=== PATIENT | female | born 1990 | race Two or more races ===

== ENCOUNTER 2023-03-24 17:49 | Emergency (ER) | payer BC, SELFPAY ==
[2023-03-24 18:18] VITALS: BP 108/75; PULSE 98; RESP 18; TEMP 37.7; O2SAT 100; BMI 27.1
--- NOTE | 2023-03-24 18:18 | ED.GENADULT ---
HPI - General Adult General Chief complaint: Fever Stated complaint: Fever Time Seen by Provider: 03/24/23 19:40 Source: patient Mode of arrival: ambulatory Limitations: no limitations History of Present Illness HPI narrative: Patient is a 32 year old assigned female at with no reported medical history presenting to the emergency department today with a fever and cough. Patient states that over the last 2 days she has felt generally unwell with a fever and a cough. Patient denies any dizziness, lightheadedness, abdominal pain, nausea, vomiting, chills, blurry vision, double vision, loss of vision, chest pain, difficulty breathing, shortness of breath, back pain, night sweats, pain with urination, increased urinary frequency, increased urinary urgency, blood in her urine or stool, syncope or a near syncopal episode, recent trauma or falls, bowel incontinence, bladder incontinence, bowel retention, bladder retention, or any other complaints at this time. Onset (ago): day(s) (2) Severity: mild Severity scale (1-10): 3 Relieving factors: none Exacerbating factors: none Associated symptoms: cough and fever/chills Treatments prior to arrival: none Related Data Previous Rx's Medication Instructions Recorded oseltamivir 75 mg capsule (Tamiflu) 75 mg PO DAILY 5 days #5 caps 03/24/23 Allergies Allergy/AdvReac Type Severity Reaction Status Date / Time shellfish derived Allergy Anaphylaxis Verified 03/24/23 18:18 Review of Systems Constitutional: Constitutional: Reports no additional constitutional complaints, Denies chills, Reports fever(s) and Denies night sweats Eyes: Eyes: Reports no additional eye complaints, Denies blurry vision, Denies change in vision, Denies diplopia, Denies eye discharge, Denies loss of vision and Denies eye pain ENT: Denies dizziness Cardiovascular: Cardiovascular: Reports no additional cardiovascular complaints, Denies chest pain, Denies lightheadedness, Denies Loss of Consciousness and Denies dyspnea Respiratory: Respiratory: Reports no additional respiratory complaints, Reports cough and Denies dyspnea Gastrointestinal: Gastrointestinal: Reports no additional gastrointestinal complaints, Denies abdominal pain, Denies melena, Denies hematochezia, Denies change in bowel habits and Denies change in stool character Genitourinary: Genitourinary: Denies hematuria, Denies urinary frequency, Denies dysuria, Denies urinary incontinence, Denies urinary hesitancy and Denies urinary urgency Musculoskeletal: Musculoskeletal: Reports no additional musculoskeletal complaints, Denies numbness and Denies tingling Neurologic: Denies dizziness, Denies loss of vision, Denies numbness and Denies tingling Psychiatric: Psychiatric: Reports no additional psychiatric complaints Endocrine: Endocrine: Reports no additional endocrine complaints Hematologic/Lymphatic: Hematologic/Lymphatic: Reports no additional hematologic/lymphatic complaints Allergic/Immunologic: Allergic/Immunologic: Reports no additional allergic/immunologic complaints PMFSH Past Medical History Attestation statement: The following information was validated with the patient. Source: old records reviewed and nursing notes reviewed Social History Social History Advance Directives: No Advance Directives Information Provided: No Physical Exam ED Vital Signs: Vital Signs - 24 hr 03/24/23 18:18 Temperature 99.9 F Pulse Rate 98 Respiratory Rate 18 Blood Pressure 108/75 Pulse Oximetry 100 Oxygen Delivery Method Room Air BMI result Body Mass Index 27.1 Const General: cooperative, no acute distress, alert and awake Nutritional Appearance: well nourished Orientation/consciousness: patient oriented x3 Limitations: no limitations HENMT Head: Yes normal to inspection and Yes atraumatic Ears: hearing grossly normal bilaterally and external ears normal General nose exam: Normal external nose present, no nasal discharge noted and no epistaxis Face and sinus: Yes normal facial exam, No abrasion and No laceration Mouth: Normal oral and palatal mucosa present, no drooling and no muffled voice Eyes General: appearance normal, both eyes and all related structures Periorbital: periorbital findings normal Eyelids: Yes eyelids normal Conjunctivae: conjunctivae normal Pupils: Equal, round and reactive pupils present EOM: EOMs intact bilaterally Neck Neck: Yes normal visual inspection, Yes full ROM and Yes no lymphadenopathy Chest Chest palpation & inspection: normal inspection of the chest Resp Effort & Inspection: normal respiratory effort and able to speak in complete sentences GI Inspection: Yes normal to inspection Neuro General: patient oriented x3 and moves all extremities Cranial nerves: Yes Equal, round and reactive pupils present Cognition (Neuro): normal cognition Motor exam (neuro): 5/5 motor strength present throughout Sensory Exam: Normal double simultaneous stimulation for sensation Coordination: [id number] test normal Extrem General: Yes normal to inspection, Yes full ROM and Yes capillary refill normal Psych Appearance: grossly normal Mental Status: mental status grossly normal Affect: normal affect Attitude: cooperative Thought process: Normal thought process present Thought content: Normal thought content present Insight: Good insight present (Psych) Course Course Course Narrative: RME performed by Jhoana Calderon PA-C. Patient is a 32 year old assigned female at presenting to the emergency department with a fever and feeling generally unwell. Swabs ordered. Patient placed back in the waiting room pending room availability and results. Medical Decision Making Medical Decision Making MDM Narrative: Patient is a 32 year old assigned female at with no reported medical history presenting to the emergency department today with a cough and fever. Patient's physical exam was unremarkable. Patient's COVID-19 and RSV tests were negative. Patient's influenza test was positive. I explained my physical exam findings as well as all test results to the patient. I answered all questions asked by the patient. I stressed the importance of the patient taking her medication as prescribed. I stressed the importance of the patient following up with her primary care provider. I stressed the importance of the patient returning to the emergency department immediately if her symptoms were to worsen or if she were to develop any dizziness, shortness of breath, difficulty breathing, chest pain, blurry vision, loss of vision, nausea, vomiting, abdominal pain, fever, chills, back pain, or any other complaints. Patient verbalized agreement and understanding with this treatment plan and discharge. Differential Diagnosis Differential Diagnoses: The differential diagnosis associated with the presentation includes COVID-19 Influenza RSV Viral illness Admission/Observation Consideration of admission/observation: Escalation of care including admission/observation considered Patient would have been admitted to the hospital had her work up had any findings where hospital admission was appropriate and her clinical presentation warranted hospital admission. Lab Data [facility] Lab Attestation statement: I reviewed the patient's lab results. My interpretation of these results are in the [facility] Rationale portion of this note. Labs: Lab Results 03/24/23 Range/Units 18:52 Influenza Type A (PCR) POSITIVE A (Negative) Influenza Type B (PCR) NEGATIVE (Negative) RSV RNA Qual (PCR) NEGATIVE (Negative) SARS-CoV-2 RNA (RT-PCR) NEGATIVE (Negative) S. pyogenes GrpA PETER Negative (Negative) Prescription Management I considered prescription management with: Antiviral (patient prescribed tamiflu for her influenza) Discharge Plan Discharge Clinical Impression: Influenza Patient Disposition: Home, Self-Care Instructions: Influenza (DC) Additional Instructions: Follow up with your primary care provider. Return to the emergency department immediately if your symptoms worsen or if you develop any dizziness, shortness of breath, difficulty breathing, chest pain, blurry vision, loss of vision, nausea, vomiting, abdominal pain, fever, chills, back pain, or any other complaints. Prescriptions: New oseltamivir [Tamiflu] 75 mg capsule 75 mg PO DAILY 5 Days Qty: 5 0RF Referrals: Anushka Pena MD [Primary Care Provider] - Interventions: ED Discharge Assessment Last Done: 03/24/23 19:54 Discharge Date/Time: 03/24/23 19:55 Print Language: Bolivian
--- NOTE | 2023-03-24 18:56 | MHC.EDTECH ---
Patient rsv/covid swab and streap swab collected and sent to lab .
[2023-03-24 19:12] LABS: IDNOW Serial# 6674DD1D; Strep A Nucleic Acid Negative (Negative)
[2023-03-24 19:37] LABS: Influenza A PCR POSITIVE (Negative); Influenza B PCR NEGATIVE (Negative); Resp Syncy Virus RNA Qual PCR NEGATIVE (Negative); SARS COV2 PCR INHOUSE NEGATIVE (Negative)
== END 2023-03-24 19:55 | disposition home or self-care (01) ==
PROVIDERS: Physician Assistant Medical; Emergency Provider Internal Medicine; PCP Internal Medicine
DX: J10.1 Influenza due to other identified influenza virus with other respiratory manifestations (principal); R50.9 Fever, unspecified; R05.9 Cough, unspecified; Z20.822 Contact with and (suspected) exposure to COVID-19; Z20.828 Contact with and (suspected) exposure to other viral communicable diseases
CPT/HCPCS: 0241U; 87651; 99282; 99283

== ENCOUNTER 2024-03-15 15:20 | Outpatient (REF) | payer BC, SELFPAY ==
--- NOTE | ~2024-03-15 | US_ITS ---
EXAMINATION: US RETROPERITONEAL LIMITED (RENAL ONLY) CLINICAL INFORMATION: Abdominal pain. History of renal calculus.. COMPARISON: None available. TECHNIQUE: Real-time ultrasound examination of the abdomen was performed. Images were supplemented by color Doppler. FINDINGS: RIGHT KIDNEY: 11.0 x 4.8 x 6.2 cm (SAG x AP x TRV). The kidney appears unremarkable in size, contour, and echogenicity. Renal cortical thickness is normal. No calculi or focal parenchymal lesion identified. No hydronephrosis. LEFT KIDNEY: 9.8 x 6.2 x 4.9 cm (SAG x AP x TRV). The kidney appears unremarkable in size, contour, and echogenicity. Renal cortical thickness is normal. No calculi or focal parenchymal lesion identified. No hydronephrosis. BLADDER: Not imaged. US/US renal BI IMPRESSION: Unremarkable renal ultrasound examination. Electronically signed by: Cortez Hitchcock MD 03/15/2024 04:44 PM [facility]
== END 2024-03-15 15:21 | disposition home or self-care (01) ==
LOC: HO.US 15:20
PROVIDERS: PCP Internal Medicine; Visit Provider Internal Medicine Nephrology
DX: R10.9 Unspecified abdominal pain (principal); Z87.442 Personal history of urinary calculi
CPT/HCPCS: 76775

== ENCOUNTER 2024-05-13 11:49 | Outpatient (REF) | payer BC, SELFPAY ==
--- OUTSIDE RECORDS SUMMARY | 2024-05-13 13:05 | XMS_ITS | Clinical Summary ---
Author Organization [facility] Address [address] [place] [id number] Care Team Providers Care Structural Steel Erection Supervisor Name Role Phone Dick Arrington MD Primary Care Provider Unavailab le Social History Tobacco Use Types Packs/Day Years Used Date Smoking Tobacco: Never Assessed Comments Unknown Sex and Gender Information Value Date Recorded Sex Assigned at Not on file Legal Sex Female 4:47 PM EST Gender Identity Not on file Sexual Orientation Not on file Plan of Treatment Health Maintenance Due Date Last Done Comments Pneumococcal Vaccine: Pediat rics (0 to 5 Years) and At-Risk Patients (6 to 64 Years) (1 of 2 - PCV) 11/12/1995 Hepatitis B Vaccine (1 of 3 - 19+ 3-dose series) 11/11 Influenza Vaccine (#1) 2023 02/04/2016 Care Teams Structural Steel Erection Supervisor Relationship Specialty Start Date End Date Dick Arrington MD PCP - General Nephrology 09/14/20
--- OUTSIDE RECORDS SUMMARY | 2024-05-13 13:05 | XMS_ITS | Encounter Summary ---
Author Organization [facility] Address [address] [place] [address] Phone Care Team Providers Care Assurance Assistant Name Role Phone Dick Arrington MD Primary Care Provider Unavailab le Encounter Details Date Type Department Care Team (Late st Contact Info) Description 10/01/2020 Orders Only [facility] [address] [place] [address] Dick Arrington MD Dysuria Social History Tobacco Use Types Packs/Day Years Used Date Smoking Tobacco: Never Assessed Comments Unknown Sex and Gender Information Value Date Recorded Sex Assigned at Not on file Legal Sex Female 4:47 PM EST Gender Identity Not on file Sexual Orientation Not on file documented as of this encounter Plan of Treatment Not on file documented as of this encounter Procedures Procedure Name Priority Date/Time Associated Diagnosis Comments URINE CULTURE Routine 11/16/2020 3:55 PM EDT Dysuria documented in this encounter Results * Urine culture (11/16/2020 3:55 PM EDT) Specimen Description See Comment See Comment See Comment See Comment BAY Comment: CLEAN CATCH (URINE) NONE 10-50,000 COL/ML ??ESCHERICHIA COLI FINAL 11/19/2020 Susceptibility See Comment SIMONE Comment: ORGANISM ? 10-50,000 COL/ML ??ESCHERICHIA COLI METHOD ? MIN. INHIB. CONC. (MCG/ML) AMPICILLIN ? SUSCEPTIBLE AMPICILLIN/SULBACTAM SUSCEPTIBLE AMOXICILLIN/CLAVULAN SUSCEPTIBLE CEFAZOLIN ?SUSCEPTIBLE CEFEPIME ? SUSCEPTIBLE CEFTRIAXONE ?SUSCEPTIBLE CIPROFLOXACIN ?SUSCEPTIBLE ERTAPENEM ?SUSCEPTIBLE GENTAMICIN ? SUSCEPTIBLE LEVOFLOXACIN ? SUSCEPTIBLE MEROPENEM ?SUSCEPTIBLE NITROFURANTOIN ? SUSCEPTIBLE PIPERACILLIN/TAZOBAC SUSCEPTIBLE TRIMETH/SULFAMETHOX ??SUSCEPTIBLE TETRACYCLINE ? SUSCEPTIBLE Testing performed or reported by [facility], a Service of [facility], [facility] [place] [address] Hu Stock MD, Maintenance Plumber [facility]# [id number] Urine (Urine, Clean Catch) 11/16/2020 3:55 PM EDT 11/16/2020 3:58 PM EDT us Dick Arrington MD LAB URINE ORDERABLES Final Resul t Performing Organization Address City/State/[facility] Co de Phone Number [facility] documented in this encounter Visit Diagnoses Diagnosis Dysuria documented in this encounter Care Teams Assurance Assistant Relationship Specialty Start Date End Date Dick Arrington MD PCP - General Nephrology 09/14/20 documented as of this encounter
--- OUTSIDE RECORDS SUMMARY | 2024-05-13 13:05 | XMS_ITS | Encounter Summary ---
Author Organization [facility] Address [address] [place] [address] Phone Care Team Providers Care Steam Shovel Operating Engineer Name Role Phone Dick Arrington MD Primary Care Provider Unavailab le Encounter Details Date Type Department Care Team (Late st Contact Info) Description 07/31/2020 Orders Only [facility] [address] [facility] [address] [place] [address] Rosalie Cuenca [place] Exposure to COVID-19 (Primary Dx); Cough Social History Tobacco Use Types Packs/Day Years Used Date Smoking Tobacco: Never Assessed Comments Unknown Sex and Gender Information Value Date Recorded Sex Assigned at Not on file Legal Sex Female 4:47 PM EST Gender Identity Not on file Sexual Orientation Not on file documented as of this encounter Plan of Treatment Scheduled Orders Name Type Priority Associated Diagnoses Orde r Schedule COVID-19 Microbiology Routine Exposure to COVID-19 Cough Expected: 07/31/2020, Expires: 07/31/2021 documented as of this encounter Procedures Procedure Name Priority Date/Time Associated Diagnosis Comments SARS COV 2 BY PCR () Routine 07/31/2020 1:06 PM EDT documented in this encounter Results * SARS-CoV-2 by PCR (07/31/2020 1:06 PM EDT) Coronavirus COVID-19 PCR NEGATIVE (NEG) [facility] Comment: 2019-novel Coronavirus (2019-nCoV) not detected by real-time RT-PCR. Note: If clinical suspicion for COVID-19 is high, continue to maintain precautions and consider repeat testing. Result reported to the [facility]. To prevent errors in diagnosis, test results should be interpreted in the context of clinical findings and other laboratory data. Rare polymorphisms exist that could lead to false-negative or false-positive results. If results obtained do not match the clinical findings, additional testing should be considered. This test has been authorized by the FDA under an Emergency Use Authorization (EUA) for use by authorized laboratories. Testing performed by real time PCR utilizing [employer] Zoom[employer]et[employer] SARS-CoV-2 test. SARS-CoV-2 Source [facility] Comment: Testing performed or reported by [facility], a Service of [facility], [address] [place] [id number] [address] MD, [employer] 07/31/2020 1:06 PM EDT 07/31/2020 6:43 PM EDT us Ángel Figueredo MD LAB HISTORICAL-CONVERSION S-UNSOLICITED RESULTS Final Result [facility] documented in this encounter Visit Diagnoses Diagnosis Exposure to COVID-19- Primary Cough documented in this encounter Care Teams Steam Shovel Operating Engineer Relationship Specialty Start Date End Date Dick Arrington MD PCP - General Nephrology 09/14/20 documented as of this encounter
== END 2024-05-13 11:50 | disposition home or self-care (01) ==
LOC: HO.10HDLNP 11:49
PROVIDERS: Visit Provider Internal Medicine Nephrology
DX: R30.0 Dysuria (principal)
CPT/HCPCS: 87086; 87088; 87186

== ENCOUNTER 2024-06-17 09:36 | Outpatient (AMB) | payer BC, SELFPAY ==
--- NOTE | 2024-06-17 09:44 | A.OFFPC_ITS ---
Vital Signs 06/17/24 09:54 Height 5 ft 6 in Weight 165 lb 2 oz BMI 26.6 BP 102/66 Blood Pressure Location Lt brachial Position Sitting Respiration 12 Pulse 80 Pulse Source Pulse Oximeter Temp 96.9 F Temp Source Oral Pulse Oximetry (%) 95 Oxygen Delivery Method Room Air Intake Visit Reasons: Est. care Intake Note: new patient to establish care Weaving Professor Required: No Allergies shellfish derived Allergy (Verified 06/17/24 09:45) Anaphylaxis Tobacco use date assessed: 06/17/24 Dental Screening Dental Screen Date: 06/17/24 Did you have a dental visit in the last 12 months?: Yes Did you have a dental problem in the last 6 months where you did not have access to dental care?: No Was dental information given to patient?: Patient has dentist HPI HPI Comments History of Present Illness0 Details This is a 33-year-old female with no significant past medical history presenting for evaluation of upper back and neck pain. She is a new patient. T he symptoms began 2 weeks ago. She denies inciting injury or trauma. The pain is a 6 or a 7/10. It improves when she takes Tylenol or ibuprofen. It does not wake her up at night. She describes it as a burning pain. Pain is in the upper back and neck, predominantly on the left side, and it sometimes radiates down her arms to her hands. This past Monday she was also having a tingling sensatio n in her arms and hands associated with the pain. This resolved. She is not dropping anything or unable to use her arms, but her arms to feel tired. No headaches, vision changes, chest pain, shortness of breath, fevers, chills or recent illnesses. 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 ROS: Constitutional: No unexplained weight loss, fever, chills, fatigue or night sweats. Eyes: No vision changes, blurry vision, double vision Respiratory: No shortness of breath Cardiovascular: No chest pain Neurologic: No headache, tremors, seizures, numbness, no tingling present today. No weakness. Musculoskeletal: See HPI Skin: No rash, discoloration or itching. Physical exam: Constitutional: Alert, in no distress. Neck: Supple, Full range of motion. No lymphadenopathy.. Respiratory: Clear to auscultation. Cardiovascular: S1 S2 regular. No murmurs. Neurologic: No focal neurological deficits. Symmetric upper extremity reflexes.. Moves all extremities spontaneously. Sensation intact bilaterally. Upper extremity strength 5/5 bilaterally. Skin: No rash, ecchymosis or erythema. Spine: Full range of motion without pain. No midline spinal tenderness. The b ilateral upper trapezius and left cervical paraspinal musculature is firm but nontender. Extremities: Warm and well perfused. No clubbing, cyanosis or edema. 3+ radial pulses bilaterally. Psychiatric: Normal mood and affect [facility] Medical History (Updated 06/17/24 @ 10:12 by ZULMA Kwok) Upper back pain Cervicalgia Kidney stone Surgical History (Updated 06/17/24 @ 10:02 by ZULMA Kwok) H/O hernia repair Family History (Updated 06/17/24 @ 09:59 by Uma Torres MA) Mother HTN (hypertension) Social History (Updated 06/17/24 @ 09:54 by Uma Torres MA) Household Members: Spouse and Children Both parents involved: No Caregiver staying overnight: No Housing: House Are you a primary transition of care specialist to a significant other at home: Yes Do you presently have visiting nurse or other home services: No 75 years or older and lives alone: No Alcohol intake: current Alcohol intake frequency: a few times a month Patient Tobacco Use Status: Never used Tobacco e-Cigarette/Vaping Use: Never Used Second Hand Smoke Exposure: No service: No Current occupational status: employed 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 1. Little interest or pleasure in doing things: not at all 2. Feeling down, depressed, or hopeless: not at all 3. Trouble falling or staying asleep, or sleeping too much: not at all 4. Feeling tired or having little energy: not at all 5. Poor appetite or overeating: not at all 6. Feeling bad about yourself - or that you are a failure or have let yourself or your family down: not at all 7. Trouble concentrating on things, such as reading the newspaper or watching television: not at all 8. Moving or speaking so slowly that other people could have noticed. Or the opposite - being so fidgety or restless that you have been moving around a lot more than usual: not at all 9. Thoughts that you would be better off or of hurting yourself in some way: not at all Total score: 0 Depression Screening Interpretation: Negative Depression Screening Done: Yes 56298 - PHQ-9 Billing: Yes Source: Developed by Drs. Puma Olvera, Lou Nolasco, Elia Haddad and colleagues, with an educational marli from [employer]. Thrive Questionnaire Date Thrive assessed: 06/17/24 I am a: Patient What is your living situation today?: I have a steady place to live Within the past 12 months, did the food you bought not last and you didn't have the money to get more?: Never true Within the past 12 months, did you worry whether your food would run out before you got money to buy more?: Never true Do you have trouble paying for medicines?: No Do you have trouble getting transportation to medical appointments?: No Do you have trouble paying your heating and electricity bill?: No Do you have trouble taking care of your child, family member or friend?: No Do you have trouble with day-to-day activities such as bathing, preparing meals, shopping, managing finances, etc.?: No Are you currently unemployed and looking for a job?: No Are you interested in more education?: Yes Please select the resources that you would like help with: None Currently or been in a relationship where the following occur: No concerns reported THRIVE Score: 0 AUDIT C Alcohol Use Questionnaire (AUDIT-C) 1. How often do you have a drink containing alcohol?: 2-4 times a month 2. How many drinks containing alcohol do you have on a typical day when you are drinking?: 1 or 2 3. How often do you have six or more drinks on one occasion?: Never Total Score: 2 JEFFRY-7 AMB Questionnaire JEFFRY-7 Date JEFFRY - 7 assessed: 06/17/24 Feeling nervous, anxious, or on edge: 1 = Several days Not being able to stop or control worryin = Not at all Worrying too much about different things: 0 = Not at all Trouble relaxin = Not at all Being so restless that it is hard to sit still: 0 = Not at all Becoming easily annoyed or irritable: 0 = Not at all Feeling afraid as if something awful might happen: 0 = Not at all Total JEFFRY-7 score (0-4 normal; 5-9 mild; 10-14 moderate; 15-21 severe): 1 Source: Developed by Drs. Puma Olvera, Lou Nolasco, Elia Haddad and colleagues, with an educational marli from [employer]. JEFFRY-7 Assessment Billing JEFFRY-7 Assessment Tool: JEFFRY-7 Assessment 32748 Physical exam (Primary Care) Vital Signs: Last Vital Signs Temp 96.9 F 06/17/24 09:54 Pulse 80 06/17/24 09:54 Resp 12 06/17/24 09:54 BP 102/66 06/17/24 09:54 Pulse Ox 95 06/17/24 09:54 Oxygen Delivery Method Room Air 06/17/24 09:54 BMI result Body Mass Index 26.6 Tobacco/Smoking Status: Tobacco use Status Patient Tobacco Use Status Never used Tobacco 06/17/24 09:54 e-Cigarette/Vaping Use Never Used 06/17/24 09:54 PHQ-9: PHQ-9 Score PHQ-9: Total score 0 06/17/24 09:44 Depression Screening Interpretation: Negative Thrive Assessment: Date of Thrive Assessment Date Thrive assessed 06/17/24 06/17/24 09:44 Currently or been in a relationship where the following occur: No concerns reported Coding Level of Care Code New Pt Level 4 (16382) Complex EM visit Add On G2211 Diagnoses Upper back pain M54.9 Cervicalgia M54.2 Additional Codes JEFFRY-7 Assessment Billing - JEFFRY-7 Assessment Tool: JEFFRY-7 Assessment 60983 ([id number]) PHQ-9 - 70921 - PHQ-9 Billing: Yes ([id number]) Assessment & Plan Assessment & Plan (1) Upper back pain: Code(s): M54.9 - Dorsalgia, unspecified Category: Medical (2) Cervicalgia: Code(s): M54.2 - Cervicalgia Category: Medical Plan The symptoms may be due to a musculoskeletal strain or pinched nerve. No findings on exam concerning for myelopathy. No history or symptoms concerning for infection or central neurological etiology. We will proceed with x-ray of the cervical and thoracic spine. Trial of sulindac 200 mg twice daily with food for 7-10 days. Do not take with other NSAIDs. Flexeril 5 mg at bedtime as needed. Advised patient not to drive, work or operate heavy machinery after taking this medication since it does cause drowsiness. I will follow up with her on the phone once I have her x-ray results. She will also schedule a physical exam. Orders: Orders XR thoracic spine 2V Today M54.2 - Cervicalgia, M54.9 - Dorsalgia, unspecified XR cervical spine 4V Today M54.2 - Cervicalgia, M54.9 - Dorsalgia, unspecified Medications: New sulindac 200 mg PO BID 10 days 20 tabs 0RF cyclobenzaprine 5 mg PO BEDTIME PRN 10 tabs 0RF muscle spasm Discontinued oseltamivir (Tamiflu) Discontinued Reason: Patient Completed Course 75 mg PO DAILY 5 days 5 caps 0RF levofloxacin Discontinued Reason: Patient Completed Course 500 mg PO DAILY 7 days 7 tabs 0RF
[2024-06-17 09:54] VITALS: BP 102/66; PULSE 80; RESP 12; TEMP 36.1; O2SAT 95; BMI 26.6
--- OUTSIDE RECORDS SUMMARY | 2024-06-17 10:29 | XMS_ITS | Encounter Summary ---
Author Organization [facility] Address [address] [place] [address] Phone Care Team Providers Care Finance Officer Name Role Phone Dick Arrington MD Primary Care Provider Unavailab le Encounter Details Date Type Department Care Team (Late st Contact Info) Description 07/31/2020 Orders Only [facility] [address] [facility] [address] [place] [address] Rosalie Cuenca MA Exposure to [...] PM EDT) Coronavirus COVID-19 PCR NEGATIVE (NEG) [facility] Comment: 2019-novel Coronavirus (2019-nCoV) not detected by real-time RT-PCR. Note: If clinical suspicion for COVID-19 is high, continue to maintain precautions and consider repeat testing. Result reported to the [facility]. To prevent errors in diagnosis, test results [...] performed by real time PCR utilizing ASHLEY [employer] SARS-CoV-2 test. SARS-CoV-2 Source [facility] Comment: Testing performed or reported by [facility], a Service of [facility], [address] [place] [address] [address] MD, Maple Products Maker 07/31/2020 1:06 PM EDT 07/31/2020 6:43 PM EDT us Ángel Figueredo MD LAB HISTORICAL-CONVERSION S-UNSOLICITED RESULTS Final Result [facility] documented in this encounter Visit Diagnoses Diagnosis Exposure to COVID-19- Primary Cough documented in this encounter Care Teams Finance Officer Relationship Specialty Start Date End Date Dick Arrington MD PCP - General Nephrology 09/14/20 documented as of this encounter
--- OUTSIDE RECORDS SUMMARY | 2024-06-17 10:29 | XMS_ITS | Clinical Summary ---
Author Organization [facility] Address [address] [place] [id number] Care Team Providers Care Threshing Machine Operator Name Role Phone Dick Arrington MD Primary [...] Influenza Vaccine (#1) 2023 02/04/2016 Care Teams Threshing Machine Operator Relationship Specialty Start Date End Date Dick Arrington MD PCP - General Nephrology 09/14/20
--- OUTSIDE RECORDS SUMMARY | 2024-06-17 10:29 | XMS_ITS | Encounter Summary ---
Author Organization [facility] Address [address] [place] [address] Phone Care Team Providers Care Billing Typist Name Role Phone Dick Arrington MD Primary Care Provider Unavailab le Encounter Details Date Type Department Care Team (Late st Contact Info) Description 10/01/2020 Orders Only [facility] [address] [place] [address] Dick Arrington MD Dysuria Social [...] ? SUSCEPTIBLE Testing performed or reported by [facility], a Service of [facility], [facility] [place] [address] Hu Stock MD, Pmp Project Manager [facility]# [id number] Urine (Urine, Clean Catch) 11/16/2020 3:55 PM EDT 11/16/2020 3:58 PM EDT us Dick Arrington MD LAB URINE ORDERABLES Final Resul t Performing Organization Address City/State/[facility] Co de Phone Number [facility] documented in this encounter Visit Diagnoses Diagnosis Dysuria documented in this encounter Care Teams Billing Typist Relationship Specialty Start Date End Date Dick Arrington MD PCP - General Nephrology 09/14/20 documented as of this encounter
== END 2024-06-17 10:15 | disposition home or self-care (01) ==
LOC: HO.HMCFM 09:37
PROVIDERS: PCP Physician Assistant Medical; Visit Provider Physician Assistant Medical
DX: M54.9 Dorsalgia, unspecified (principal); M54.2 Cervicalgia

== ENCOUNTER 2024-06-17 09:36 | Outpatient (REF) | payer BC, SELFPAY ==
--- NOTE | ~2024-06-17 | XR_ITS ---
CLINICAL HISTORY: M54.2 - Cervicalgia 4 views thoracic spine Comparison: None Findings: There is mild thoracic scoliosis. No acute fractures or dislocation. No significant degenerative change. IMPRESSION: No acute findings. This document has been electronically signed by: Douglas Hale MD on 06/18/2024 07:38:35
--- NOTE | ~2024-06-17 | XR_ITS ---
CLINICAL HISTORY: M54.2 - Cervicalgia 6 views cervical spine Comparison: None Findings: Normal alignment. No acute fractures or dislocation. No significant degenerative change. Prevertebral soft tissues within normal limits. IMPRESSION: No acute findings. This document has been electronically signed by: Douglas Hale MD on 06/18/2024 07:44:24
== END 2024-06-17 09:37 | disposition home or self-care (01) ==
LOC: HO.XRAY 09:36
PROVIDERS: PCP Physician Assistant Medical; Visit Provider Physician Assistant Medical
DX: M54.2 Cervicalgia (principal); M54.6 Pain in thoracic spine
CPT/HCPCS: 72050; 72070; 96127

== ENCOUNTER 2024-06-17 21:29 | Emergency (ER) | payer BC, SELFPAY ==
--- NOTE | 2024-06-17 | ECG_ITS ---
Test Reason : CHEST PAIN, N/V Blood Pressure : */* mmHG Vent. Rate : 78 BPM Atrial Rate : 78 BPM P-R Int : 128 ms QRS Dur : 96 ms QT Int : 370 ms P-R-T Axes : 67 75 58 degrees QTcB Int : 421 ms Normal sinus rhythm with sinus arrhythmia Cannot rule out Anterior infarct , age undetermined -Poor R wave progression Abnormal ECG No previous ECGs available Referred By: Generic ED Physician Electronically Signed By: Jose De Dios
--- NOTE | ~2024-06-17 | XR_ITS ---
CLINICAL HISTORY: CP 1 view chest x-ray Comparison: None Findings: No consolidation or effusion. Heart size is normal. No acute fracture. IMPRESSION: 1. No acute findings. This document has been electronically signed by: Felisha Joseph MD on 06/17/2024 23:13:37
[2024-06-17 21:48] VITALS: BP 144/92; PULSE 98; O2SAT 99
[2024-06-17 21:56] VITALS: BP 124/75; PULSE 86; RESP 11; TEMP 36.9; O2SAT 99; BMI 26.8
[2024-06-17 22:00] VITALS: BP 124/75; PULSE 86; RESP 11; TEMP 36.9; O2SAT 99
[2024-06-17 22:14] LABS: MANUAL DIFF FLAG NO
[2024-06-17 22:15] LABS: Basophils Percent Auto 0.4 % (0-2); Eosinophils Absolute Auto 0.1 X10*3/uL (0.0-0.4); Eosinophils Percent Auto 0.9 % (0-4); Hematocrit 34.4 % (37.0-47.0); Hemoglobin 12.3 g/dl (12.0-16.0); Imm Gran Abs Auto 0.02 X10*3/uL (0.00-0.03); Imm Gran Pct Auto 0.3 % (0.0-0.4); Lymphocytes Absolute Auto 2.1 X10*3/uL (1.2-4.9); Lymphocytes Percent Auto 26.7 % (20-40); Mean Corpuscular HGB Conc 35.8 g/dl (31.0-35.0); Mean Corpuscular Hemoglobin 32.4 pg (27.0-33.0); Mean Corpuscular Volume 90.5 fL (80.0-98.0); Mean Platelet Volume 10.8 fL (9.4-12.3); Monocytes Absolute Auto 0.6 X10*3/uL (0.1-1.2); Monocytes Percent Auto 8.1 % (2-11); Neutrophils Percent Auto 63.6 % (45-73); Platelet Count 223 X10*3/uL (160-400); Red Cell Distribution Width 12.3 % (11.0-16.0); White Blood Count 7.8 X10*3/uL (4.8-10.8)
[2024-06-17 22:27] LABS: Alanine Aminotransferase 18 U/L (0-31); Alkaline Phosphatase 46 U/L (39-117); Anion Gap 9 (12-20); Aspartate Amino Transferase 17 U/L (5-31); Blood Urea Nitrogen 11 mg/dL (9-16); Calcium 8.6 mg/dL (8.4-10.2); Carbon Dioxide 22 mmol/L (22-29); Chloride 111 mmol/L (96-108); Creatinine Clr Calc Pharmacy 128.4; Estimated Glomerular Filt Rate > 60; Glucose Random 194 mg/dL (60-115); Potassium 3.4 mmol/L (3.3-5.1); Sodium 139 mmol/L (135-145); Total Protein 6.6 g/dL (6.5-8.0)
--- NOTE | 2024-06-17 22:35 | ED_ITS ---
HPI - General Adult General Chief complaint: Nausea/Vomiting/Diarrhea Stated complaint: weakness, cp, nausea x 5 hours Time Seen by Provider: 06/17/24 22:25 Source: patient Mode of arrival: ambulatory Limitations: no limitations History of Present Illness ED Provider: Dr. Sagrario Merino HPI narrative: Patient comes to the emergency room complaining of 1 day of substernal chest discomfort, nausea, no vomiting or diarrhea, complaining of feeling weak, generalized malaise. Patient denies being short of breath, no fever chills, no diarrhea or abdominal pain. Related Data Home Medications ?Medication ?Instructions ?Recorded ?Confirmed epinephrine 0.3 mg/0.3 mL 0.3 mg IM Q10M PRN 06/17/24 06/17/24 injection, auto-injector (EpiPen) Previous Rx's ?Medication ?Instructions ?Recorded cyclobenzaprine 5 mg tablet 5 mg PO BEDTIME PRN muscle spasm 06/17/24 #10 tabs sulindac 200 mg tablet 200 mg PO BID 10 days #20 tabs 06/17/24 ondansetron 4 mg disintegrating 4 mg PO Q6H PRN nausea and 06/18/24 tablet vomiting #14 tabs Allergies Allergy/AdvReac Type Severity Reaction Status Date / Time shellfish derived Allergy Anaphylaxis Verified 06/17/24 21:58 Review of Systems 2 Review of Systems: Constitutional : No Weight loss, No Fever, No Chills, No Night Sweats, complaining of fatigue and generalized malaise ENT/Mouth : No Hearing loss, No Ear Pain, No Nasal Congestion, No Sinus Pain, No Hoarseness, No sore throat, No Rhinorrhea, No Swallowing Difficulty Eyes: No Eye Pain, No Swelling, No Redness, No Foreign Body, No Discharge, No Vision Changes Cardiovascular : Complaining of mid substernal burning/discomfort, no significant pain, No SOB, No Dyspnea on Exertion, No Orthopnea, No Edema, No Palpitations Respiratory : No Cough, No Sputum, No Wheezing, No Smoke Exposure, No Dyspnea Gastrointestinal : Complaining of Nausea, No Vomiting, No Diarrhea, No Constipation, No abdominal Pain, No Hematochezia, No Melena Genitourinary : no irregular bleeding, No Dysuria, No Urinary Frequency, No Hematuria, No Urinary Incontinence, No Urgency, No Flank Pain, No Urinary Flow Changes, No Hesitancy Musculoskeletal : No joint pain, No Myalgias, No Joint Swelling Skin : No Skin Lesions, No rash Neuro : No Weakness, No Numbness, No Paresthesias, No Loss of Consciousness, No Dizziness, No Headache Psych : No Anxiety/Panic, No Depression, No SI/HI/AH/VH, No Social Issues, Heme/Lymph: No Bruising, No Bleeding,No Lymphadenopathy Endocrine : No Polyuria, No Polydipsia, No Temperature Intolerance [facility] Past Medical History Medical History Upper back pain Cervicalgia Kidney stone Surgical History H/O hernia repair Family History Family History (Updated 06/17/24 @ 09:59 by Uma Torres MA) Mother HTN (hypertension) Social History Social History (Updated 06/17/24 @ 09:54 by Uma Torres MA) Household Members: Spouse and Children Housing: House Are you a primary long term care phlebotomist to a significant other at home: Yes Do you presently have visiting nurse or other home services: No Alcohol intake: current Alcohol intake frequency: does not drink Patient Tobacco Use Status: Never used Tobacco Smoked in Last 30 Days: No e-Cigarette/Vaping Use: Never Used Second Hand Smoke Exposure: No Use of substances other than those prescribed or required for medical reasons: No Advance Directives: No Advance Directives Information Provided: No Patient : No service: No Current occupational status: employed 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 Oriented X3. No acute distress. Eyes: Pupils equal, round and reactive to light. ENT: Pharynx normal. Neck: Normal inspection. Neck supple. No lymph nodes noted. No crepitus CVS: Normal heart rate and rhythm. Pulses normal. Normal S1 and S2 Respiratory: No respiratory distress. Breath sounds normal. No Wheezing. No rales Abdomen: Soft and nontender. No rigidity. No distention. Skin: Skin warm and dry. Normal skin color. Normal skin turgor. Extremities: No lower extremity edema. No Lacerations. No Rash Neuro: Oriented X 3. No motor deficit. No sensory deficit. Moving all extremities. No slurred speech. CN 2 through 12 grossly intact Psych: calm, cooperative, normal affect Medications Administered Discontinued Medications Generic Name Dose Route Start Last Admin Trade Name Stephanie PRN Reason Stop Dose Admin Ondansetron HCl 4 mg 06/17/24 22:35 06/17/24 22:42 Ondansetron Odt 4 Mg Tab.Rapdis TRANSLINGU 06/17/24 22:36 4 mg ONCE ONE Administration Medical Decision Making Medical Decision Making [facility] Narrative: My interpretation of labs: No significant abnormality in patient's hematology, normal chemistry, normal LFTs, normal troponin, normal lipase, negative hCG, negative flu and COVID Chest x-ray negative EKG: Normal sinus rhythm, heart rate 78, no ST segment depression or elevation, no T-wave inversion, QTC 421 Patient likely has a viral syndrome. No episodes of vomiting or diarrhea in the ED. Patient denies any UTI symptoms, urinalysis negative Differential Diagnosis Differential Diagnoses: The differential diagnosis associated with the presentation includes (Gastroenteritis, URI) Lab Data 06/17/24 22:09 06/17/24 22:09 Labs: Lab Results 06/17/24 06/18/24 06/18/24 Range/Units 22:09 00:17 01:37 WBC 7.8 (4.8-10.8) X10*3/uL RBC 3.80 L (4.20-5.50) X10*6/uL Hgb 12.3 (12.0-16.0) g/dl Hct 34.4 L (37.0-47.0) % MCV 90.5 (80.0-98.0) fL MCH 32.4 (27.0-33.0) pg MCHC 35.8 H (31.0-35.0) g/dl RDW 12.3 (11.0-16.0) % Plt Count 223 (160-400) X10*3/uL MPV 10.8 (9.4-12.3) fL Immature Gran % (Auto) 0.3 (0.0-0.4) % Neut % (Auto) 63.6 (45-73) % Lymph % (Auto) 26.7 (20-40) % Sandoval % (Auto) 8.1 (2-11) % Eos % (Auto) 0.9 (0-4) % Baso % (Auto) 0.4 (0-2) % Lymph # (Auto) 2.1 (1.2-4.9) X10*3/uL [place] # (Auto) 0.6 (0.1-1.2) X10*3/uL Eos # (Auto) 0.1 (0.0-0.4) X10*3/uL Baso # (Auto) 0.0 (0.0-0.2) X10*3/uL Abs Immat Gran (auto) 0.02 (0.00-0.03) X10*3/uL Absolute Neuts (auto) 5.0 (2.0-8.3) x10*3/uL Absolute Nucleated RBC 0.000 (0.0-0.012) X10*3/uL Nucleated RBC % (auto) 0.0 (0.0-0.2) /100WBC Sodium 139 (135-145) mmol/L Potassium 3.4 (3.3-5.1) mmol/L Chloride 111 H (96-108) mmol/L Carbon Dioxide 22 (22-29) mmol/L Anion Gap 9 L (12-20) BUN 11 (9-16) mg/dL Creatinine 0.64 (0.5-1.4) mg/dL Estim Creat Clear Calc 128.4 Estimated GFR > 60 Random Glucose 194 H (60-115) mg/dL Calcium 8.6 (8.4-10.2) mg/dL Total Bilirubin 1.0 (0.0-1.0) mg/dL AST 17 (5-31) U/L ALT 18 (0-31) U/L Alkaline Phosphatase 46 (39-117) U/L Troponin I High Sens < 2.7 (<3.5-17.0) ng/L Total Protein 6.6 (6.5-8.0) g/dL Albumin 4.0 (3.5-5.0) g/dL Lipase 8 (8-78) U/L Beta HCG, Quant < 2 mIU/mL Urine Color Yellow Urine Appearance Clear Urine pH 6.0 (5.0-9.0) Ur Specific [place] 1.020 (1.005-1.025) Urine Protein Negative (Neg-Trace) mg/dL Urine Glucose (UA) Negative (Negative) mg/dL Urine Ketones Negative (Negative) mg/dL Urine Blood Negative (Negative) Urine Nitrite Negative (Negative) Ur Leukocyte Esterase Trace H (Negative) COVID-19 ([place]) Negative (Negative) COVID-19 Clin Com See Note Influenza Type A (PETER) Negative (Negative) Influenza Type B (PETER) Negative (Negative) Influenza A & B Note See Note Discharge Plan Discharge Clinical Impression: Acute viral syndrome, Nausea & vomiting Patient Disposition: Home, Self-Care Instructions: Acute Nausea and Vomiting (ED), Viral Syndrome (ED) Additional Instructions: Please follow-up with your primary care physician tomorrow. If you have any worsening or new symptoms, please return to the emergency room or call 911 Prescriptions: New ondansetron 4 mg tablet,disintegrating 4 mg PO Q6H PRN (Reason: nausea and vomiting) Qty: 14 0RF No Action sulindac 200 mg tablet 200 mg PO BID 10 Days Qty: 20 0RF cyclobenzaprine 5 mg tablet 5 mg PO BEDTIME PRN (Reason: muscle spasm) Qty: 10 0RF epinephrine [EpiPen] 0.3 mg/0.3 mL auto-injector 0.3 mg IM Q10M PRN Rx Instructions: for 2 doses Print Language: Latvian
[2024-06-17] MEDS: Ondansetron ODT 4 MG TAB.RAPDIS TRANSLINGU (22:42)
[2024-06-17 22:44] LABS: Lipase 8 U/L (8-78)
[2024-06-17 22:47] LABS: HCG Quantitative < 2 mIU/mL
[2024-06-17 22:54] LABS: Troponin-I High Sensitivity < 2.7 ng/L (<3.5-17.0)
[2024-06-18 00:32] VITALS: BP 111/66; PULSE 77; RESP 16; TEMP 36.7; O2SAT 99
[2024-06-18 00:52] LABS: IDNOW Serial# 55D5AD1C; Influenza A Negative (Negative); Influenza B2 Negative (Negative)
[2024-06-18 00:53] LABS: COVID-19 Test Negative (Negative); IDNOW Serial# 58CA691E
[2024-06-18 01:57] LABS: Appearance Urine Clear; Color Urine Yellow; Glucose Urine UA Negative (Negative); Leukocyte Esterase Urine Trace (Negative); Nitrite Urine Negative (Negative); UMIC TRIGGER UACC YES; Urine Blood Negative (Negative); Urine Ketones Negative (Negative); Urine Protein Negative (Neg-Trace)
[2024-06-18 01:59] LABS: Bacteria Urine None Seen (None Seen); Hyaline Casts Urine 0-2 /LPF (0-2); RBC Urine 0-2 /HPF (0-2); Squamous Epithelial Cell Urine 0-2 /HPF (0-2); WBC Urine 0-5 /HPF (0-5)
[2024-06-18 02:33] VITALS: BP 111/66; PULSE 77; RESP 16; TEMP 36.7; O2SAT 99
== END 2024-06-18 02:35 | disposition home or self-care (01) ==
PROVIDERS: Emergency Provider Emergency Medicine; PCP Physician Assistant Medical
DX: B34.9 Viral infection, unspecified (principal); R11.2 Nausea with vomiting, unspecified; R07.89 Other chest pain; R11.0 Nausea; R10.2 Pelvic and perineal pain; Z11.52 Encounter for screening for COVID-19; Z79.899 Other long term (current) drug therapy
CPT/HCPCS: 36415; 71045; 80053; 81001; 83690; 84484; 84702; 85025; 87502; 87635; 93005; 99283; 99284

== ENCOUNTER → 2024-06-17 22:02 | Outpatient (BNV) | payer BC, SELFPAY | PROVIDERS: Emergency Provider Emergency Medicine; PCP Physician Assistant Medical; Visit Provider Internal Medicine Cardiovascular Disease | DX: I49.9 Cardiac arrhythmia, unspecified (principal) | CPT/HCPCS: 93010 ==

== ENCOUNTER → 2024-06-17 22:33 | Outpatient (BNV) | payer BC, SELFPAY | PROVIDERS: Emergency Provider Emergency Medicine; PCP Physician Assistant Medical; Visit Provider Radiology Diagnostic Radiology | DX: M54.2 Cervicalgia (principal); M41.9 Scoliosis, unspecified; R07.9 Chest pain, unspecified | CPT/HCPCS: 71045; 72050; 72070 ==

== ENCOUNTER 2024-07-05 12:38 | Outpatient (REF) | payer BC, SELFPAY ==
[2024-07-05 14:19] LABS: Vitamin B12 613 pg/mL (200-900)
[2024-07-05 14:21] LABS: TSH reflex Free T4 1.16 uIU/mL (0.32-4.0)
--- OUTSIDE RECORDS SUMMARY | 2024-07-05 14:28 | XMS_ITS | Encounter Summary ---
Author Organization [facility] Address [address] [place] [address] Phone Care Team Providers Care Dairy Tester Name Role Phone Dick Arrington MD Primary Care Provider Unavailab le Encounter Details Date Type Department Care Team (Late st Contact Info) Description 07/31/2020 Orders Only [facility] [address] [facility] [address] [place] [address] Rosalie Cuenca [place] Exposure to [...] PM EDT) Coronavirus COVID-19 PCR NEGATIVE (NEG) [facility] Comment: 2019-novel Coronavirus (2019-nCoV) not detected by real-time RT-PCR. Note: If clinical suspicion for COVID-19 is high, continue to maintain precautions and consider repeat testing. Result reported to the [facility]. To prevent errors in diagnosis, test [...] performed by real time PCR utilizing ASHLEY [employer] SARS-CoV-2 test. SARS-CoV-2 Source [facility] Comment: Testing performed or reported by [facility], a Service of [facility], [address] [place] [address] [address] MD, [employer] Programmer 07/31/2020 1:06 PM EDT 07/31/2020 6:43 PM EDT us Ángel Figueredo MD LAB HISTORICAL-CONVERSION S-UNSOLICITED RESULTS Final Result [facility] documented in this encounter Visit Diagnoses Diagnosis Exposure to COVID-19- Primary Cough documented in this encounter Care Teams Dairy Tester Relationship Specialty Start Date End Date Dick Arrington MD PCP - General Nephrology 09/14/20 documented as of this encounter
--- OUTSIDE RECORDS SUMMARY | 2024-07-05 14:28 | XMS_ITS | Encounter Summary ---
Author Organization [facility] Address [address] [place] [address] Phone Care Team Providers Care Cement Loader Name Role Phone Dick Arrington MD Primary Care Provider Unavailab le Encounter Details Date Type Department Care Team (Late st Contact Info) Description 10/01/2020 Orders Only [facility] [address] [place] [address] Dick Arrington MD Dysuria Social [...] ? SUSCEPTIBLE Testing performed or reported by [facility], a Service of [facility], [facility] [place] [address] Hu Stock MD, Hvac Installer [facility]# [id number] Urine (Urine, Clean Catch) 11/16/2020 3:55 PM EDT 11/16/2020 3:58 PM EDT us Dick Arrington MD LAB URINE ORDERABLES Final Resul t Performing Organization Address City/State/[place] Co de Phone Number [facility] documented in this encounter Visit Diagnoses Diagnosis Dysuria documented in this encounter Care Teams Cement Loader Relationship Specialty Start Date End Date Dick Arrington MD PCP - General Nephrology 09/14/20 documented as of this encounter
--- OUTSIDE RECORDS SUMMARY | 2024-07-05 14:28 | XMS_ITS | Clinical Summary ---
Author Organization [facility] Address [address] [place] [address] Care Team Providers Care Massage Coordinator Name Role Phone Dick Arrington MD Primary [...] Influenza Vaccine (#1) 2023 02/04/2016 Care Teams Massage Coordinator Relationship Specialty Start Date End Date Dick Arrington MD PCP - General Nephrology 09/14/20
[2024-07-08 17:43] LABS: CRP High Sensitivity 2.9 mg/L
[2024-07-09 03:13] LABS: Complement C3 140 mg/dL (83-193)
[2024-07-09 12:38] LABS: Anti DNA DS Antibody 4 IU/mL
[2024-07-09 15:24] LABS: IgA 277 mg/dL (47-310); IgG 1081 mg/dL (600-1640); IgM 144 mg/dL (50-300)
[2024-07-09 18:03] LABS: Lyme Abs Screen <0.90 index
== END 2024-07-05 12:39 | disposition home or self-care (01) ==
LOC: HO.LAB 12:38
PROVIDERS: Visit Provider Internal Medicine Nephrology
DX: R20.2 Paresthesia of skin (principal); R07.89 Other chest pain; R00.2 Palpitations
CPT/HCPCS: 36415; 82607; 82784; 83835; 84443; 85652; 86141; 86160; 86225; 86334; 86617; 86618

== ENCOUNTER 2024-07-11 15:13 | Outpatient (AMB) | payer BC, SELFPAY ==
--- NOTE | 2024-07-11 15:14 | A.OFFVIS_ITS ---
Vital Signs 07/11/24 15:18 Height 5 ft 6 in Weight 166 lb BMI 26.8 Intake Visit Reasons: tingling in arms Intake Note: Patient presents for tingling in arms Allergies shellfish derived Allergy (Verified 07/11/24 15:18) Anaphylaxis Medication List - Last Reconciled 07/11/24 by SHERWIN Weinstein cyclobenzaprine 5 mg PO BEDTIME PRN epinephrine (EpiPen) 0.3 mg IM Q10M PRN ondansetron 4 mg PO Q6H PRN sulindac 200 mg PO BID 10 days HPI Comments Details: Right-handed 33-yr-old female presents for new pt evaluation of neurological symptoms. Pt reports she started having new neck pain about 1 month ago without known preceding accident or injury. The neck pain was sharp and would radiate down into her left shoulder/arm. Since, the neck pain has subsided, it is more in the left shoulder region now. Then she started experiencing hot/cold cooling sensation stemming from her upper back and running through bilateral arms and legs, bilateral finger tingling, and bilateral arm weakness and heaviness, as if she has been holding them above her head for a long time. Pertinent denials include: Peripheral swelling, skin color changes, recent bowel bladder changes. The episodes are not associated with migraine attacks. Then 1-2 weeks ago, she started having days of feeling excessively fatigued and tired. 3 weeks ago, she felt very exhausted and just not right- went to the [facility]- but the wait was long, so she went home. Once home, she tried to eat, and then while drinking an electrolyte drink- all of sudden she was not feeling well a/w chest tightness, palpitations, SOB, and generally unwell-including nausea which she attributed to the episode overall- end-stage she did not have associated vomiting. Her called 911, she was brought to [facility]- chest x-ray was unremarkable, lab workup was notable for mild anemia, elevated random glucose 194, CMP otherwise within normal limits. Discharge diagnosis GI viral syndrome and was d/c'd w/ prn zofran. Then last week, she had a similar episode while watching her dtr's sports practice- she went home, took an allergy medication and went to sleep. when she woke up the next day, she felt better but still weak and tired. She was given an order for cyclobenzaprine 5 mg, she took it once but then could not sleep. But she was not sure if it this was truly an effect of the medication or not. Since the ER eval, she has had additional workup ordered by PCP and Nephrology: IgG total, IgA total, IgM, double strand DNA AV, complement C3/C4-within normal limits CRP 2.9, vitamin B12 613, TSH 1.16 XR C-spine was unremarkable. XR T-spine was notable for mild thoracic scoliosis without significant degenerative change. Once several years ago, in August 2022, she had a similar episode while driving, where a sensation came over, this strange hot sensation, felt like she was not in this world - and it lasted 5 minutes, and she returned to baseline. She had another similar episode in Feb 2023- was tx'd w/ IVF, and felt better. PMH and ROS are notable for:? General: Endorses fatigue as above Neuro: Migraines w/o aura- 1-2 x's per month- able to work through them, has sumatriptan- but has not had taken it. HEENT: vision- is abit more blurry when looking at the computer. 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 History of concussion/head injury: none Mood d/o: Anxiety a/w palpitations- previously tx'd w/ sertraline- has been stable. This is different from more recent episodes/symptoms. Respiratory d/o: denies CV disease: denies Clotting or hematology d/o: denies Endocrine or metabolic d/o: h/o gestational diabetes- w/ last 5 yrs ago History of seizure: denies History of syncope: denies : kidney stones- in the past GI d/o: denies PIECE JOBBER: Menses is regular. On Paraguard- tolerates well. Family history of neurological disorder: Mother has a known unruptured intracranial AVM. [facility] Medical History Chest tightness Upper back pain Cervicalgia Kidney stone Surgical History H/O hernia repair Family History Mother HTN (hypertension) Social History Household Members: Spouse and Children Housing: House Are you a primary home care administrator to a significant other at home: Yes Do you presently have visiting nurse or other home services: No Alcohol intake: current Alcohol intake frequency: does not drink Patient Tobacco Use Status: Never used Tobacco e-Cigarette/Vaping Use: Never Used Second Hand Smoke Exposure: No service: No Current occupational status: employed 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 Mild forward shoulder posture. Slightly limited left lateral cervical rotation, cervical range of motion otherwise intact. Cervical flexion elicits tightness and discomfort in posterior cervical region. Left positive Spurling-pain radiates from neck into left shoulder region. Muscle strength 5/5 throughout. Bilateral hand grasp 5/5 symmetric No pronator drift Negative bilateral Brenda. Negative BUE Tinel, Phalen, medial compression test. Bilateral distal upper extremity and lower extremity light touch, sharp sensation, vibration, proprioception sensation intact. Finger-nose intact Tandem walk intact Romberg negative General: patient oriented x3 Cranial nerves: Yes Equal, round and reactive pupils present, Yes Normal accommodation reflex present, Yes Bilaterally intact EOM present, Yes Nystagmus not present, Yes Normal facial strength present, Yes Midline tongue present, Yes Symmetric palate elevation present, Yes Normal hearing present, Yes Ability to bilaterally rotate head present, Yes Ability to bilaterally elevate shoulders present and Yes Other cranial nerve findings present (Very mild lower facial asymmetry- ? Chronic) Cognition (Neuro): normal cognition Gait exam (Neuro): Normal gait present Deep tendon reflexes (DTR's): Right triceps reflex intensity grade: 2+, Left triceps reflex intensity grade: 2+, Rt Biceps (C5, C6): 2+, Left biceps reflex intensity grade: 2+, Right brachioradialis reflex intensity grade: 2+, Left brachioradialis reflex intensity grade: 2+, Right patellar reflex intensity grade: 2+, Left patellar reflex intensity grade: 2+, Right ankle reflex intensity grade: 2+ and Left ankle reflex intensity grade: 2+ Pupils: Normal pupillary reactivity/response: bilateral Psych Appearance: grossly normal Mental Status: mental status grossly normal Speech and movement: Normal speech and movement present Affect: normal affect Attitude: cooperative Thought process: Normal thought process present Assessment & Plan Assessment & Plan (1) Tingling: Code(s): R20.2 - Paresthesia of skin Category: Medical (2) Weakness: Code(s): R53.1 - Weakness Category: Medical (3) Paresthesia of upper and lower extremities of both sides: Code(s): R20.2 - Paresthesia of skin Category: Medical (4) Anemia: Code(s): D64.9 - Anemia, unspecified Category: Medical (5) Elevated blood sugar: Code(s): R73.9 - Hyperglycemia, unspecified Category: Medical (6) Cervicalgia: Code(s): M54.2 - Cervicalgia Category: Medical Plan Discussed that at this time due to patient's constellation of symptoms, we can not give a firm diagnosis. Although there are some symptoms to suggest a left cervical radiculopathic process, this would not explain her more systemic symptoms, which do raise suspicion for an underlying central process or systemic peripheral process- especially in light of previous similar episodes. Thus, additional workup is indicated. Patient verbalizes understanding and is in agreement with plan as outlined below. Patient is advised to undergo: MRI brain with and without contrast and C-spine with and without contrast to assess for central demyelinating lesions. BUE/BLE EMG/NCS to assess for peripheral neuropathy Fasting lab workup to further round out workup for secondary etiologies Re-try cyclobenzaprine 5-10 mg q.h.s. p.r.n. Future considerations: Physical therapy once etiology better understood. Eye exam. Will follow-up upon review of above and patient to follow-up in clinic in 3-4 months or sooner prn. Orders: Orders Folate 07/12/24 D64.9 - Anemia, unspecified, R20.2 - Paresthesia of skin, R53.1 - Weakness, R73.9 - Hyperglycemia, unspecified Ferritin 07/12/24 D64.9 - Anemia, unspecified, R20.2 - Paresthesia of skin, R53.1 - Weakness, R73.9 - Hyperglycemia, unspecified Homocysteine 07/12/24 D64.9 - Anemia, unspecified, R20.2 - Paresthesia of skin, R53.1 - Weakness, R73.9 - Hyperglycemia, unspecified IRON PROFILE 07/12/24 D64.9 - Anemia, unspecified, R20.2 - Paresthesia of skin, R53.1 - Weakness, R73.9 - Hyperglycemia, unspecified Rheumatoid Factor 07/12/24 D64.9 - Anemia, unspecified, R20.2 - Paresthesia of skin, R53.1 - Weakness, R73.9 - Hyperglycemia, unspecified NE nerve conduction velocity 07/11/24 D64.9 - Anemia, unspecified, R20.2 - Paresthesia of skin, R53.1 - Weakness, R73.9 - Hyperglycemia, unspecified MR cervical spine wo/w con 07/11/24 R20.2 - Paresthesia of skin, R53.1 - Weakness MR head/brain wo/w con 07/11/24 D64.9 - Anemia, unspecified, R20.2 - Par esthesia of skin, R53.1 - Weakness, R73.9 - Hyperglycemia, unspecified Vitamin D 25-OH (D2 and D3) 07/12/24 D64.9 - Anemia, unspecified, R20.2 - Paresthesia of skin, R53.1 - Weakness, R73.9 - Hyperglycemia, unspecified Methylmalonic Acid 07/12/24 D64.9 - Anemia, unspecified, R20.2 - Paresthesia of skin, R53.1 - Weakness, R73.9 - Hyperglycemia, unspecified MARYANN Reflex Titer and Pattern 07/12/24 D64.9 - Anemia, unspecified, R20.2 - Paresthesia of skin, R53.1 - Weakness, R73.9 - Hyperglycemia, unspecified Vitamin B6 07/12/24 D64.9 - Anemia, unspecified, R20.2 - Paresthesia of skin, R53.1 - Weakness, R73.9 - Hyperglycemia, unspecified Hemoglobin A1c 07/12/24 D64.9 - Anemia, unspecified, R20.2 - Paresthesia of skin, R53.1 - Weakness, R73.9 - Hyperglycemia, unspecified Basic Metabolic Panel 07/12/24 D64.9 - Anemia, unspecified, R20.2 - Paresthesia of skin, R53.1 - Weakness, R73.9 - Hyperglycemia, unspecified NE electromyogram (EMG) 07/11/24 D64.9 - Anemia, unspecified, R20.2 - Paresthesia of skin, R53.1 - Weakness, R73.9 - Hyperglycemia, unspecified Coding Level of Care Code New Pt Level 4 (71725) Diagnoses Tingling R20.2 Weakness R53.1 Paresthesia of upper and lower extremities of both sides R20.2 Anemia D64.9 Elevated blood sugar R73.9 Cervicalgia M54.2
[2024-07-11 15:18] VITALS: BMI 26.8
--- OUTSIDE RECORDS SUMMARY | 2024-07-11 17:37 | XMS_ITS | Encounter Summary ---
Author Organization [facility] Address [address] [place] [address] Phone Care Team Providers Care Lighter Captain Name Role Phone Dick Arrington MD Primary Care Provider Unavailab le Encounter Details Date Type Department Care Team (Late st Contact Info) Description 07/31/2020 Orders Only [facility] [address] [facility] [address] [place] [address] Rosalie Cuenca [place] Exposure to [...] PM EDT) Coronavirus COVID-19 PCR NEGATIVE (NEG) [facility] Comment: 2019-novel Coronavirus (2019-nCoV) not detected by real-time RT-PCR. Note: If clinical suspicion for COVID-19 is high, continue to maintain precautions and consider repeat testing. Result reported to the [facility]. To prevent errors in diagnosis, test [...] performed by real time PCR utilizing ASHLEY [employer]0 SARS-CoV-2 test. SARS-CoV-2 Source [facility] Comment: Testing performed or reported by [facility], a Service of [facility], [address] [place] [address] [address] MD, Chief Of Field Operations 07/31/2020 1:06 PM EDT 07/31/2020 6:43 PM EDT us Ángel Figueredo MD LAB HISTORICAL-CONVERSION S-UNSOLICITED RESULTS Final Result [facility] documented in this encounter Visit Diagnoses Diagnosis Exposure to COVID-19- Primary Cough documented in this encounter Care Teams Lighter Captain Relationship Specialty Start Date End Date Dick Arrington MD PCP - General Nephrology 09/14/20 documented as of this encounter
--- OUTSIDE RECORDS SUMMARY | 2024-07-11 17:37 | XMS_ITS | Clinical Summary ---
Author Organization [facility] Address [address] [place] [address] Care Team Providers Care Claims Coordinator Name Role Phone Dick Arrington MD [...] Due Date Last Done Comments Pneumococcal Vaccine: Peds ( 0 to 5 Years) and At-Risk Patients (6 to 49 Years) (1 of 2 - PCV) 11/12/1995 Hepatitis B Vaccine (1 of 3 - 19+ 3-dose series) 11/11 Influenza Vaccine (Season Ended) 2024 02/04/20 16 Care Teams Claims Coordinator Relationship Specialty Start Date End Date Dick Arrington MD PCP - General Nephrology 09/14/20
--- OUTSIDE RECORDS SUMMARY | 2024-07-11 17:37 | XMS_ITS | Encounter Summary ---
Author Organization [facility] Address [address] [place] [address] Phone Care Team Providers Care Bread Dough Mixer Name Role Phone Dick Arrington MD Primary Care Provider Unavailab le Encounter Details Date Type Department Care Team (Late st Contact Info) Description 10/01/2020 Orders Only [facility] [address] [place] [address] Dick Arrington MD Dysuria Social [...] ? SUSCEPTIBLE Testing performed or reported by [facility], a Service of [facility], [facility] [place] [address] Hu Stock MD, Guest Service Host [facility]# [id number] Urine (Urine, Clean Catch) 11/16/2020 3:55 PM EDT 11/16/2020 3:58 PM EDT us Dick Arrington MD LAB URINE ORDERABLES Final Resul t Performing Organization Address City/State/[facility] Co de Phone Number [facility] documented in this encounter Visit Diagnoses Diagnosis Dysuria documented in this encounter Care Teams Bread Dough Mixer Relationship Specialty Start Date End Date Dick Arrington MD PCP - General Nephrology 09/14/20 documented as of this encounter
== END 2024-07-12 09:48 | disposition home or self-care (01) ==
LOC: HO.HSMS 15:13
PROVIDERS: PCP Physician Assistant Medical; Visit Provider Nurse Practitioner Family
DX: R20.2 Paresthesia of skin (principal); R53.1 Weakness; D64.9 Anemia, unspecified; R73.9 Hyperglycemia, unspecified; M54.2 Cervicalgia
CPT/HCPCS: 99204

== ENCOUNTER → 2024-07-11 15:13 | Outpatient (BNVA) | payer BC, SELFPAY | PROVIDERS: PCP Physician Assistant Medical; Visit Provider Nurse Practitioner Family ==

== ENCOUNTER 2024-07-12 08:56 | Outpatient (REF) | payer BC, SELFPAY ==
--- OUTSIDE RECORDS SUMMARY | 2024-07-12 09:10 | XMS_ITS | Encounter Summary ---
Author Organization [facility] Address [address] [place] [address] Phone Care Team Providers Care Psychological Aide Name Role Phone Dick Arrington MD Primary Care Provider Unavailab le Encounter Details Date Type Department Care Team (Late st Contact Info) Description 07/31/2020 Orders Only [facility] [address] [facility] [address] [place] [address] Rosalie Cuenca [place] Exposure to [...] PM EDT) Coronavirus COVID-19 PCR NEGATIVE (NEG) [facility] Comment: 2019-novel Coronavirus (2019-nCoV) not detected by real-time RT-PCR. Note: If clinical suspicion for COVID-19 is high, continue to maintain precautions and consider repeat testing. Result reported to the [facility]. To prevent errors in diagnosis, test results [...] performed by real time PCR utilizing ASHLEY BuzzTable0 SARS-CoV-2 test. SARS-CoV-2 Source [facility] Comment: Testing performed or reported by [facility], a Service of [facility], [address] [place] [address] [address] Craig MD, Glass Vial Filler 07/31/2020 1:06 PM EDT 07/31/2020 6:43 PM EDT us Ángel Figueredo MD LAB HISTORICAL-CONVERSION S-UNSOLICITED RESULTS Final Result [facility] documented in this encounter Visit Diagnoses Diagnosis Exposure to COVID-19- Primary Cough documented in this encounter Care Teams Psychological Aide Relationship Specialty Start Date End Date Dick Arrington MD PCP - General Nephrology 09/14/20 documented as of this encounter
--- OUTSIDE RECORDS SUMMARY | 2024-07-12 09:10 | XMS_ITS | Clinical Summary ---
Author Organization [facility] Facility Address [address] [place] [address] Care Team Providers Care Carton Marker Machine Name Role Phone Dick Arrington MD Primary [...] (Season Ended) 2024 02/04/20 16 Care Teams Carton Marker Machine Relationship Specialty Start Date End Date Dick Arrington MD PCP - General Nephrology 09/14/20
--- OUTSIDE RECORDS SUMMARY | 2024-07-12 09:10 | XMS_ITS | Encounter Summary ---
Author Organization [facility] Address [address] [place] [address] Phone Care Team Providers Care Behavior Specialist Name Role Phone Dick Arrington MD Primary Care Provider Unavailab le Encounter Details Date Type Department Care Team (Late st Contact Info) Description 10/01/2020 Orders Only [facility] [address] [place] [address] Dick Arrington MD Dysuria Social [...] ? SUSCEPTIBLE Testing performed or reported by [facility], a Service of [facility], [facility] [place] [address] Hu Stock MD, Survey Crew Chief [facility]# [id number] Urine (Urine, Clean Catch) 11/16/2020 3:55 PM EDT 11/16/2020 3:58 PM EDT us Dick Arrington MD LAB URINE ORDERABLES Final Resul t Performing Organization Address City/State/[facility] Co de Phone Number [facility] documented in this encounter Visit Diagnoses Diagnosis Dysuria documented in this encounter Care Teams Behavior Specialist Relationship Specialty Start Date End Date Dick Arrington MD PCP - General Nephrology 09/14/20 documented as of this encounter
[2024-07-12 09:36] LABS: Estimated Average Glucose 117 mg/dL; Hemoglobin A1C 137.5855 umol/L; Hemoglobin A1c % 5.7 % (<6.0); Total Hemoglobin (HGBA1C) 3511.8205 umol/L
[2024-07-12 10:06] LABS: Erythrocyte Sedimentation Rate 5 MM/HR (0-20)
[2024-07-12 10:30] LABS: Anion Gap 11 (12-20); Blood Urea Nitrogen 13 mg/dL (9-16); Calcium 9.4 mg/dL (8.4-10.2); Carbon Dioxide 29 mmol/L (22-29); Chloride 105 mmol/L (96-108); Estimated Glomerular Filt Rate > 60; Glucose Random 101 mg/dL (60-115); Iron 185 mcg/dL (30-160); Percent Iron Saturation 57 % (15-50); Potassium 4.1 mmol/L (3.3-5.1); Sodium 141 mmol/L (135-145); Total Iron Binding Capacity 326 mcg/dL (228-428); Unsaturated Iron Binding 141 ug/dL
[2024-07-12 10:34] LABS: Ferritin 171 ng/mL (10-122)
[2024-07-12 10:35] LABS: Rheumatoid Factor < 13.0 IU/mL (<15.0)
[2024-07-12 10:41] LABS: Folate 10.7 ng/mL (> or = 4.0)
[2024-07-16 16:24] LABS: Methylmalonic Acid 124 nmol/L (55-335)
[2024-07-17 11:33] LABS: Anti Nuclear Antibody Screen POSITIVE (NEGATIVE)
[2024-07-17 11:44] LABS: ANA Pattern 2 Nuclear, Speckled
[2024-07-17 12:43] LABS: Homocysteine 6.3 umol/L (<10.4)
[2024-07-17 12:58] LABS: Vitamin D 25-OH, D2 <4 ng/mL; Vitamin D 25-OH, D3 16 ng/mL; Vitamin D 25-OH, Total 16 ng/mL (30-100)
[2024-07-18 06:08] LABS: Vitamin B6 25.8 ng/mL (2.1-21.7)
[2024-07-19 06:13] LABS: Metanephrine, Free 42 pg/mL (<=57); Normetanephrines, Free 63 pg/mL (<=148); Total Metanephrine, Free 105 pg/mL (<=205)
== END 2024-07-12 08:57 | disposition home or self-care (01) ==
LOC: HO.LAB 08:56
PROVIDERS: Absent Provider Internal Medicine Nephrology; PCP Physician Assistant Medical; Visit Provider Nurse Practitioner Family
DX: R20.2 Paresthesia of skin (principal); R00.2 Palpitations; R07.89 Other chest pain; R53.1 Weakness; D64.9 Anemia, unspecified; R73.9 Hyperglycemia, unspecified
CPT/HCPCS: 36415; 80048; 82306; 82728; 82746; 83036; 83090; 83540; 83835; 83921; 84207; 85652; 86038; 86039; 86431

== ENCOUNTER → 2024-07-15 14:04 | Outpatient (REF) | payer BC, SELFPAY ==
--- NOTE | 2024-07-15 14:08 | CA_ITS ---
Transthoracic Echocardiogram Patient (Last, First, Middle): Rupa Rees, Gender: Female Date of : 1990 Age: 33 Procedure Date: 07/15/2024 Procedure Type: Transthoracic Echocardiogram Location: OP Height: 167.64 cm Weight: 73.48 kg BSA: 1.83 m2 Heart Rate: bpm BP: 118 / 60 mmHg Big Data Analytics Lead: Referring MD: Vivienne MAYA Food Beverage Supervisor: Spike Serrano MD Symptoms: R07.89 - Other chest pain Study Quality: Good ECG Rhythm: Sinus Conclusions: - Normal study Findings Left Ventricle Normal left ventricular size, thickness, and systolic function. The visually estimated ejection fraction is between 60-65%. Diastolic function is normal for age. Right Ventricle Normal right ventricular cavity size and systolic function. Atria Both atria are normal in size. There is no evidence of interatrial shunt. Aortic Valve Normal aortic valve structure and function. There is no aortic valve stenosis. There is no aortic valve regurgitation. Mitral Valve Normal mitral valve structure and function. There is trace mitral valve regurgitation. There is no mitral valve stenosis. Pulmonic Valve The pulmonic valve is likely normal. Tricuspid Valve Normal tricuspid valve structure. There is trace tricuspid valve regurgitation. The right ventricular systolic pressure is normal. The right ventricular systolic pressure is 15 mmHg. Normal right atrial pressure. There is no evidence of pulmonary hypertension. Great Vessels All visible segments of the aorta are normal in size. The pulmonary artery was not well visualized. Venous The inferior vena cava is normal in size and collapses greater than 50% with inspiration. Pericardium/Pleural There is no evidence of pericardial effusion. Prior Study Comparison No prior study available for comparison. Measurements 2D Linear Measurements IVSd: 0.86 0.6-0.9/0.6-1.0 cm LVIDd: 4.66 3.9-5.3/4.2-5.9 cm LVIDd Index: 2.55 2.4-3.2/2.2-3.1 cm/m2 LVIDs: 2.92 2.0-3.6 cm LVPWd: 0.91 0.7-1.1 cm Ao Root: 2.70 2.1-3.5 cm LA Diam: 3.30 2.7-3.8/3.0-4.0 cm LAIDs Index: 1.80 1.5-2.3 cm/m2 LV Mass: 171.63 67-162/88-224 g LV Mass Index: 93.78 43-95/49-115 g/m2 LVOT Diam: 2.00 3.0+(-)1.3 cm 2D Systolic Function EF 4C: 59.10 >55% EF 2C: 67.70 >55% EF BiP: 62.10 >55% Mitral Valve MV Pk E: 0.99 MV PK A: 0.49 MV Decel Time: 233.00 E/A: 2.00 E'Lateral: 15.10 E'Medial: 12.40 E/E' Med: 8.00 E/E' Lat: 6.60 PHT: 68.00 MVA PHT: 3.24 Decel Amite: 4.25 Aortic Valve AoV Pk Checo: 1.33 AoV Mn Checo: 0.91 AoV VTI: 0.32 AoV Pk Grad: 7.00 Aov Mn Grad: 4.00 ALIS Cont.VTI: 2.13 LVOT LVOT Pk Checo: 0.97 LVOT Mn Checo: 0.62 LVOT VTI: 0.22 LVOT Pk Grad: 4.00 LVOT Mn Grad: 2.00 LVOT Diam: 2.00 LVOT Area: 3.14 Diastolic Function MV Pk E: 0.99 MV Pk A: 0.49 E/A: 2.00 E'Medial: 12.40 E/E' Med: 8.00 E' Laterial: 15.10 E/E' Lat: 6.60 Right Ventricle TAPSE (mm): 32.00 TVS' Checo: 13.00 Tricuspid Valve TR Pk Checo: 1.75 TR Pk Grad: 12.00 RA Press: 3.00 RVSP: 15.00 Great Vessels Aorta Ao Root-2D: 2.70 2.0-3.7 cm Ao Asc: 2.40 2.1-3.4 cm Ao Arch: 2.40 Pulmonary Valve PV Pk Checo: 1.01 Peak PV Grad: 4.00 Updated in Other Vendor System with Status of Final Spike Serrano MD electronically signed on 07/15/2024 4:37:48 PM with status of Final
--- OUTSIDE RECORDS SUMMARY | 2024-07-15 16:27 | XMS_ITS | Encounter Summary ---
Author Organization [facility] Address [address] [place] [address] Phone Care Team Providers Care Supply Chain Generalist Name Role Phone Dick Arrington MD Primary Care Provider Unavailab le Encounter Details Date Type Department Care Team (Late st Contact Info) Description 07/31/2020 Orders Only [facility] [address] [facility] [address] [place] [address] Rosalie Cuenca [place] Exposure to [...] PM EDT) Coronavirus COVID-19 PCR NEGATIVE (NEG) [facility] Comment: 2019-novel Coronavirus (2019-nCoV) not detected by real-time RT-PCR. Note: If clinical suspicion for COVID-19 is high, continue to maintain precautions and consider repeat testing. Result reported to the [facility]. To prevent errors in diagnosis, test [...] performed by real time PCR utilizing ASHLEY Surefield0 SARS-CoV-2 test. SARS-CoV-2 Source [facility] Comment: Testing performed or reported by [facility], a Service of [facility], [address] [place] [address] [address] Craig MD, Technical Agronomist 07/31/2020 1:06 PM EDT 07/31/2020 6:43 PM EDT us Ángel Figueredo MD LAB HISTORICAL-CONVERSION S-UNSOLICITED RESULTS Final Result [facility] documented in this encounter Visit Diagnoses Diagnosis Exposure to COVID-19- Primary Cough documented in this encounter Care Teams Supply Chain Generalist Relationship Specialty Start Date End Date Dick Arrington MD PCP - General Nephrology 09/14/20 documented as of this encounter
--- OUTSIDE RECORDS SUMMARY | 2024-07-15 16:27 | XMS_ITS | Clinical Summary ---
Author Organization [facility] Address [address] [place] [address] Care Team Providers Care Medical Program Specialist Name Role Phone Dick Arrington MD [...] Health Maintenance Due Date Last Done Comments Hepatitis B Vaccine (1 of 3 - 19+ 3-dose series) 11/11 Pneumococcal Vaccine: Peds ( 0 to 5 Years) and At-Risk Patients (6 to 49 Years) (1 of 2 - PCV) 2008 Influenza Vaccine (Season Ended) 2024 02/04/20 16 Care Teams Medical Program Specialist Relationship Specialty Start Date End Date Dick Arrington MD PCP - General Nephrology 09/14/20
--- OUTSIDE RECORDS SUMMARY | 2024-07-15 16:27 | XMS_ITS | Encounter Summary ---
Author Organization [facility] Address [address] [place] [address] Phone Care Team Providers Care Automatic Brine Mixer Operator Name Role Phone Dick Arrington MD Primary Care Provider Unavailab le Encounter Details Date Type Department Care Team (Late st Contact Info) Description 10/01/2020 Orders Only [facility] [address] [place] [address] Dick Arrington MD Dysuria Social [...] ? SUSCEPTIBLE Testing performed or reported by [facility], a Service of [facility], [facility] [place] [address] Hu Stock MD, Dough Brake Machine Operator [facility]# [id number] Urine (Urine, Clean Catch) 11/16/2020 3:55 PM EDT 11/16/2020 3:58 PM EDT us Dick Arrington MD LAB URINE ORDERABLES Final Resul t Performing Organization Address City/State/[facility] Co de Phone Number [facility] documented in this encounter Visit Diagnoses Diagnosis Dysuria documented in this encounter Care Teams Automatic Brine Mixer Operator Relationship Specialty Start Date End Date Dick Arrington MD PCP - General Nephrology 09/14/20 documented as of this encounter
== END ==
LOC: HO.CARD 14:04
PROVIDERS: PCP Physician Assistant Medical; Visit Provider Physician Assistant Medical
DX: R07.89 Other chest pain (principal); R00.2 Palpitations; R20.2 Paresthesia of skin
CPT/HCPCS: 93225; 93306

== ENCOUNTER → 2024-07-15 14:08 | Outpatient (BNV) | payer BC, SELFPAY | PROVIDERS: PCP Physician Assistant Medical; Visit Provider Internal Medicine Cardiovascular Disease | DX: I34.0 Nonrheumatic mitral (valve) insufficiency (principal); I36.1 Nonrheumatic tricuspid (valve) insufficiency | CPT/HCPCS: 93306 ==

== ENCOUNTER 2024-07-21 15:23 | Outpatient (REF) | payer BC, SELFPAY ==
--- NOTE | ~2024-07-21 | MR_ITS ---
CLINICAL HISTORY: R20.2 - Paresthesia of skin --- Additional Notes or Special Instructions: assess fo r demyelinating lesions Exam: MRI of the brain with and without intravenous contrast. Comparison: None. Findings: The size and shape of the ventricular system is within normal limits for this patient's age. Signal intensity of the brain parenchyma is within normal limits. Borrego-white differentiation is well preserved. No restricted diffusion. No midline shift or mass effect. No intracranial hemorrhage. No abnormal enhancement within the brain parenchyma. No leptomeningeal hyperenhancement. Cerebellar tonsils are low-lying. Cerebellar tonsils extend 6 mm inferior to a line between the opisthion and the basion. Visualized flow voids are patent. Mucous retention cyst within the bilateral maxillary sinuses, [id number]. No acute calvarial lesions. Impression: 1. No acute intracranial findings. Specifically, no hemorrhage, mass, or restricted diffusion. 2. 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 This document has been electronically signed by: Gary De Anda MD on 07/25/2024 06:40:08
--- NOTE | ~2024-07-21 | MR_ITS ---
CLINICAL HISTORY: R53.1 - Weakness --- Additional Notes or Special Instructions: assess for demyelina ting lesions Exam: MRI of the cervical spine with and without intravenous contrast. Comparison: Cervical spine radiographs june 17, 2024. Findings: Bony alignment of the cervical vertebral bodies is anatomic. No fracture or prevertebral soft tissue swelling is identified. No cord signal abnormality or enhancement is identified. Disc height and hydration status is appropriate throughout. Cerebellar tonsils are low-lying as described on the patient's accompanying MRI of the brain. Central canal and neural foramina are widely patent. Impression: 1. No cord signal abnormality identified. 2. Low-lying cerebellar tonsils with findings concerning for Chiari 1 malformation. 3. No degenerative change within the cervical spine. Central canal and neural foramina are widely patent. This document has been electronically signed by: Gary De Anda MD on 07/25/2024 06:47:06
--- OUTSIDE RECORDS SUMMARY | 2024-07-21 15:32 | XMS_ITS | Clinical Summary ---
Author Organization [facility] Address [address] [place] [id number] Care Team Providers Care Design Quality Engineer Name Role Phone Dick Arrington MD [...] (Season Ended) 2024 02/04/20 16 Care Teams Design Quality Engineer Relationship Specialty Start Date End Date Dick Arrington MD PCP - General Nephrology 09/14/20
--- OUTSIDE RECORDS SUMMARY | 2024-07-21 15:32 | XMS_ITS | Encounter Summary ---
Author Organization [facility] Address [address] [place] [address] Phone Care Team Providers Care Director Of Premium Seat Sales Name Role Phone Dick Arrington MD Primary Care Provider Unavailab le Encounter Details Date Type Department Care Team (Late st Contact Info) Description 07/31/2020 Orders Only [facility] [address] [place] [address] Rosalie Cuenca [place] Exposure to [...] PM EDT) Coronavirus COVID-19 PCR NEGATIVE (NEG) [facility] Comment: 2019-novel Coronavirus (2019-nCoV) not detected by real-time RT-PCR. Note: If clinical suspicion for COVID-19 is high, continue to maintain precautions and consider repeat testing. Result reported to the [facility]. To prevent errors in diagnosis, test results [...] performed by real time PCR utilizing ASHLEY Anaphore0 SARS-CoV-2 test. SARS-CoV-2 Source [facility] Comment: Testing performed or reported by [facility], a Service of [facility], [address] [place] [address] [address] MD, Blanking Press Operator 07/31/2020 1:06 PM EDT 07/31/2020 6:43 PM EDT us Ángel Figueredo MD LAB HISTORICAL-CONVERSION S-UNSOLICITED RESULTS Final Result [facility] documented in this encounter Visit Diagnoses Diagnosis Exposure to COVID-19- Primary Cough documented in this encounter Care Teams Director Of Premium Seat Sales Relationship Specialty Start Date End Date Dick Arrington MD PCP - General Nephrology 09/14/20 documented as of this encounter
[2024-07-21] MEDS: gadobutroL 7.5 ML VIAL IVPUSH (16:24)
== END 2024-07-21 15:24 | disposition home or self-care (01) ==
LOC: HO.MRI 15:23
PROVIDERS: Visit Provider Nurse Practitioner Family
DX: R53.1 Weakness (principal); R20.2 Paresthesia of skin; D64.9 Anemia, unspecified; R73.9 Hyperglycemia, unspecified; M54.2 Cervicalgia; R76.8 Other specified abnormal immunological findings in serum; M54.12 Radiculopathy, cervical region
CPT/HCPCS: 70553; 72156; A9585

== ENCOUNTER → 2024-07-21 15:37 | Outpatient (BNV) | payer BC, SELFPAY | PROVIDERS: Visit Provider Radiology Diagnostic Radiology | DX: G93.89 Other specified disorders of brain (principal); Q07.00 Arnold-Chiari syndrome without spina bifida or hydrocephalus | CPT/HCPCS: 70553; 72156 ==

== ENCOUNTER 2024-08-07 10:57 | Outpatient (AMB) | payer BC, SELFPAY ==
--- NOTE | 2024-08-07 11:00 | MHC.OFFVIS ---
Vital Signs 08/07/24 11:05 Height 5 ft 6 in Weight 161 lb 6.054 oz BMI 26.0 BP 130/80 Blood Pressure Location Rt brachial Position Sitting Pulse 84 Pulse Source Pulse Oximeter Pulse Oximetry (%) 98 Oxygen Delivery Method Room Air Intake Visit Reasons: abnormal labs Intake Note: Patients presents today with POSITIVE MARYANN Neck Band Setter Required: No Accompanied by: Self / Same As Patient Allergies shellfish derived Allergy (Verified 08/07/24 11:01) Anaphylaxis HPI HPI abnormal labs: Details: New patient visit. MARYANN 1:80. She has had episodes of pain in neck with weakness in her arms associated with paresthesia. Her arms feel heavy. Occurs twice a month. Lasts all day. Takes 2 tylenols 500mg at the time when it occurs. The next day symptoms resolves. Onset of symptoms June 2024. She had associated right wrist pain (localized to cmc area) for 1 week with initial episode in June. Cyclobenzaprine caused her insomnia. No benefit on sulindac. On June 17 she had dyspnea and she did not feel well with a hot sensation. EMS told her that she had a panic attack. It happened twice lasting 30min to 1 hour. Denies joint pain or swelling. She feels well today without any symptoms. Denies fevers, dypspnea, pleurisy, oral ulcers, rashes, raynauds syndrome, sicca symptoms, joint pain or swelling, urinary symptoms. +photosensitivity She has seen Neurology with workup MRI brain and cervical spine unremarkable. EMG scheduled for August 30. Pmx: nephrolithiasis, vitamin D defient on supplement. Surgical history of umbilical hernia repair 2009. No rheumatological family history. 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. Denies smoking Social drinker. [facility] Medical History Chest tightness Upper back pain Cervicalgia Kidney stone Surgical History H/O hernia repair Family History Mother HTN (hypertension) Social History Household Members: Spouse and Children Both parents involved: No Caregiver staying overnight: No Housing: House Are you a primary healthcare economics manager to a significant other at home: Yes Do you presently have visiting nurse or other home services: No 75 years or older and lives alone: No Alcohol intake: current Alcohol intake frequency: does not drink Patient Tobacco Use Status: Never used Tobacco e-Cigarette/Vaping Use: Never Used Second Hand Smoke Exposure: No service: No Current occupational status: employed 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 Good respiratory effort Skin: No lesions seen MSK: No tenderness of any joint. No synovitis. Normal range of motion of upper extremities and lower extremities. Normal cervical range of motion. 5/5 power upper extremities and lower extremities. Assessment & Plan Assessment & Plan (1) Positive MARYANN (antinuclear antibody): Comment: She had episodic neck pain with weakness in her arms and paresthesia that was self-limited to 1 day that started in June 2024. The characteristic of her symptom is not typical of neurological involvement in connective tissue disease. Low titer positive MARYANN with photosensitivity. She does not have any other specific symptoms or signs suggestive of systemic connective tissue disease. Unremarkable exam today. Her most recent workup reveals negative workup for SLE with double-stranded DNA and complements, inflammatory markers, normal kidney function, liver function without cytopenias. She has normal hemoglobin with low hematocrit and normal iron studies. Low clinical suspicion for connective tissue disease at this time. Code(s): R76.8 - Other specified abnormal immunological findings in serum Category: Medical Plan: No further rheumatological workup is recommended at this time as my suspicion for rheumatological process contributing to her symptoms is low. I recommended PCP consider repeating CBC and iron studies at her upcoming physical appointment in setting of normal hemoglobin and low hematocrit. She has an EMG scheduled of her upper extremities for further evaluation of her symptoms on August 30 (2) Cervical radicular pain: Comment: Self-limiting episodes of neck pain, weakness in arms with paresthesia and fingertips is concerning for cervical radiculopathy. MRI cervical spine and brain was normal. She has an upcoming EMG for further evaluation of her symptoms. Code(s): M54.12 - Radiculopathy, cervical region Category: Medical Plan: It would be best suited for patient to have EMG performed on the day when she is symptomatic for highest yield of testing. She will contact centralized scheduling to see if there is a possibility to have EMG performed on the day that she has symptoms if she has a recurrent episode before her appointment on August 30. Follow up with Neurology Medications: Discontinued ondansetron Discontinued Reason: Doctor's Order 4 mg PO Q6H PRN 14 tabs 0RF nausea and vomiting sulindac Discontinued Reason: Doctor's Order 200 mg PO BID 10 days 20 tabs 0RF cyclobenzaprine Discontinued Reason: Doctor's Order 5 mg PO BEDTIME PRN 10 tabs 0RF muscle spasm Coding Level of Care Code New Pt Level 4 (70149) Diagnoses Positive MARYANN (antinuclear antibody) R76.8 Cervical radicular pain M54.12
[2024-08-07 11:05] VITALS: BP 130/80; PULSE 84; O2SAT 98; BMI 26.0
--- OUTSIDE RECORDS SUMMARY | 2024-08-07 12:23 | XMS_ITS | Clinical Summary ---
Author Organization [facility] Address [address] [place] [address] Care Team Providers Care Macaroni Maker Name Role Phone Dick Arrington MD Primary [...] (Season Ended) 2024 02/04/20 16 Care Teams Macaroni Maker Relationship Specialty Start Date End Date Dick Arrington MD PCP - General Nephrology 09/14/20
--- OUTSIDE RECORDS SUMMARY | 2024-08-07 12:23 | XMS_ITS | Encounter Summary ---
Author Organization [facility] Address [address] [place] [address] Phone Care Team Providers Care Rework Machine Operator Name Role Phone Dick Arrington MD Primary Care Provider Unavailab le Encounter Details Date Type Department Care Team (Late st Contact Info) Description 07/31/2020 Orders Only [facility] [address] [facility] [address] [place] [address] Rosalie Cuenca [place] Exposure to [...] PM EDT) Coronavirus COVID-19 PCR NEGATIVE (NEG) [facility] Comment: 2019-novel Coronavirus (2019-nCoV) not detected by real-time RT-PCR. Note: If clinical suspicion for COVID-19 is high, continue to maintain precautions and consider repeat testing. Result reported to the [facility]. To prevent errors in diagnosis, test results [...] performed by real time PCR utilizing ASHLEY [place] [employer]0 SARS-CoV-2 test. SARS-CoV-2 Source [facility] Comment: Testing performed or reported by [facility], a Service of [facility], [address] [place] [address] [address] [place] MD, Auto Clutch Rebuilder 07/31/2020 1:06 PM EDT 07/31/2020 6:43 PM EDT us Ángel Figueredo MD LAB HISTORICAL-CONVERSION S-UNSOLICITED RESULTS Final Result [facility] documented in this encounter Visit Diagnoses Diagnosis Exposure to COVID-19- Primary Cough documented in this encounter Care Teams Rework Machine Operator Relationship Specialty Start Date End Date Dick Arrington MD PCP - General Nephrology 09/14/20 documented as of this encounter
--- OUTSIDE RECORDS SUMMARY | 2024-08-07 12:23 | XMS_ITS | Encounter Summary ---
Author Organization [facility] Address [address] [place] [address] Phone Care Team Providers Care Certified Technician Specialist Name Role Phone Dick Arrington MD Primary Care Provider Unavailab le Encounter Details Date Type Department Care Team (Late st Contact Info) Description 10/01/2020 Orders Only [facility] [address] [place] [address] Dick Arrington MD Dysuria Social [...] ? SUSCEPTIBLE Testing performed or reported by [facility], a Service of [facility], [facility] [place] [address] Hu Stock MD, Automotive Maintenance Technician [facility]# [id number] Urine (Urine, Clean Catch) 11/16/2020 3:55 PM EDT 11/16/2020 3:58 PM EDT us Dick Arrington MD LAB URINE ORDERABLES Final Resul t Performing Organization Address City/State/[facility] Co de Phone Number [facility] documented in this encounter Visit Diagnoses Diagnosis Dysuria documented in this encounter Care Teams Certified Technician Specialist Relationship Specialty Start Date End Date Dick Arrington MD PCP - General Nephrology 09/14/20 documented as of this encounter
== END 2024-08-07 12:37 | disposition home or self-care (01) ==
LOC: HO.RHES 10:58
PROVIDERS: PCP Physician Assistant Medical; Visit Provider Internal Medicine Rheumatology
DX: R76.8 Other specified abnormal immunological findings in serum (principal); M54.12 Radiculopathy, cervical region
CPT/HCPCS: 99204

== ENCOUNTER 2024-08-19 16:17 | Outpatient (AMB) | payer BC, SELFPAY ==
--- NOTE | 2024-08-19 16:19 | MHC.PC.OV ---
Vital Signs 08/19/24 16:23 Height 5 ft 6 in Weight 158 lb 2 oz BMI 25.5 BP 116/66 Blood Pressure Location Rt brachial Position Sitting Pulse 94 Pulse Source Pulse Oximeter Temp 98.6 F Temp Source Temporal Artery Scan Pulse Oximetry (%) 98 Oxygen Delivery Method Room Air Intake Visit Reasons: annual physical exam Intake Note: Rupa presents in the office today for her annual physical. Allergies shellfish derived Allergy (Verified 08/19/24 16:20) Anaphylaxis Tobacco use date assessed: 08/19/24 Dental Screening Dental Screen Date: 08/19/24 Did you have a dental visit in the last 12 months?: Yes Did you have a dental problem in the last 6 months where you did not have access to dental care?: No Was dental information given to patient?: Patient has dentist HPI HPI Comments History of Present Illness Details This is a 33-year-old female with a past medical history of positive MARYANN, vitamin-D deficiency, migraines, anemia, paresthesias and cervicalgia presenting for a physical exam. The patient saw Neurology for evaluation of migraines, cervicalgia and paresthesias. She had an MRI of the head and cervical spine which demonstrated no cause for symptoms. She had a lab workup including a positive MARYANN. She saw Rheumatology, but they did not suspect rheumatological disease. EMG is scheduled this month. Eye and dental exams are up to date. 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 She had mild anemia but high iron. She is not taking an iron supplement. She was on a liquid vitamin for awhile, but she stopped taking it before the labs. No family history of hemochromatosis to her knowledge. Prediabetes-this is a new diagnosis. Her hemoglobin A1c was 5.7% in July. She had gestational diabetes with her 3rd . Her brother has diabetes. Denies family history of colon cancer. Vitamin-D deficiency-Overall she notes improvement in fatigue. There is an order to repeat the vitamin-D level in October. She is taking 39481 IU once a week. ROS: Constitutional: No unexplained weight loss, fever, chills, fatigue or night sweats. Eyes: No vision changes, blurry vision, double vision, eye pain, eye redness, eye discharge. ENT: No hearing loss, sneezing, congestion, runny nose or sore throat. Respiratory: No shortness of breath, cough or sputum production. Cardiovascular: No chest pain, chest pressure or chest discomfort. No palpitations or pedal edema. Gastrointestinal: No anorexia, nausea, vomiting or diarrhea. No abdominal pain or blood in stool. Genitourinary: No dysuria, hematuria, urinary frequency. Neurologic: No headache, dizziness, syncope. See HPI Musculoskeletal: see HPI Hematologic/Lymphatics: No bleeding or bruising. No painful lymph nodes. Skin: No rash Endocrine: No cold or heat intolerance. No polyuria or polydipsia. Psychiatric: No depression or anxiety. No SI/HI. Physical exam: Constitutional: Alert, in no distress. Head: Normocephalic. Eyes: Pupils are equal, round and reactive to light. Extraocular muscles intact. Ear, Nose and Throat: Canals clear. TMs normal. Normal nasal mucosa. No nasal discharge. No oral lesions. Neck: Supple, Full range of motion. No lymphadenopathy. No palpable thyroid masses. Respiratory: Clear to auscultation. Cardiovascular: S1 S2 regular. No murmurs. Gastrointestinal: Abdomen soft, non-tender, non-distended. Normal bowel sounds. No palpable masses. Neurologic: No focal neurological deficits. Skin: No rashes o Musculoskeletal: No gross deformities. Normal range of motion. Extremities: Warm and well perfused. No clubbing, cyanosis or edema. Intact peripheral pulses bilaterally. Psychiatric: Normal mood and affect [facility] Medical History (Updated 08/19/24 @ 17:03 by ZULMA Kwok) Routine physical examination Prediabetes Chest tightness Upper back pain Cervicalgia Kidney stone Surgical History H/O hernia repair Family History Mother HTN (hypertension) Social History (Updated 08/19/24 @ 16:21 by Farzana Arellano MA) Household Members: Spouse and Children Both parents involved: No Caregiver staying overnight: No Housing: House Are you a primary long term care phlebotomist to a significant other at home: Yes Do you presently have visiting nurse or other home services: No 75 years or older and lives alone: No Alcohol intake: current Alcohol intake frequency: does not drink Patient Tobacco Use Status: Never used Tobacco e-Cigarette/Vaping Use: Never Used Second Hand Smoke Exposure: No service: No Current occupational status: employed 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 1. Little interest or pleasure in doing things: not at all 2. Feeling down, depressed, or hopeless: not at all 3. Trouble falling or staying asleep, or sleeping too much: not at all 4. Feeling tired or having little energy: several days 5. Poor appetite or overeating: not at all 6. Feeling bad about yourself - or that you are a failure or have let yourself or your family down: not at all 7. Trouble concentrating on things, such as reading the newspaper or watching television: not at all 8. Moving or speaking so slowly that other people could have noticed. Or the opposite - being so fidgety or restless that you have been moving around a lot more than usual: not at all 9. Thoughts that you would be better off or of hurting yourself in some way: not at all Total score: 1 Depression Screening Interpretation: Negative Depression Screening Done: Yes 84344 - PHQ-9 Billing: Yes Source: Developed by Drs. Puma Olvera, Lou Nolasco, Elia Haddad and colleagues, with an educational marli from [employer]. Thrive Questionnaire Date Thrive assessed: 08/19/24 I am a: Patient What is your living situation today?: I have a steady place to live Within the past 12 months, did the food you bought not last and you didn't have the money to get more?: Never true Within the past 12 months, did you worry whether your food would run out before you got money to buy more?: Never true Do you have trouble paying for medicines?: No Do you have trouble getting transportation to medical appointments?: No Do you have trouble paying your heating and electricity bill?: No Do you have trouble taking care of your child, family member or friend?: No Do you have trouble with day-to-day activities such as bathing, preparing meals, shopping, managing finances, etc.?: No Are you currently unemployed and looking for a job?: No Are you interested in more education?: Yes Please select the resources that you would like help with: None Currently or been in a relationship where the following occur: No concerns reported THRIVE Score: 0 AUDIT C Alcohol Use Questionnaire (AUDIT-C) 1. How often do you have a drink containing alcohol?: 2-4 times a month 2. How many drinks containing alcohol do you have on a typical day when you are drinking?: 1 or 2 3. How often do you have six or more drinks on one occasion?: Never Total Score: 2 Score Reviewed/Action Taken: No JEFFRY-7 AMB Questionnaire JEFFRY-7 Date JEFFRY - 7 assessed: 08/19/24 Feeling nervous, anxious, or on edge: 0 = Not at all Not being able to stop or control worryin = Not at all Worrying too much about different things: 0 = Not at all Trouble relaxin = Not at all Being so restless that it is hard to sit still: 0 = Not at all Becoming easily annoyed or irritable: 0 = Not at all Feeling afraid as if something awful might happen: 0 = Not at all Total JEFFRY-7 score (0-4 normal; 5-9 mild; 10-14 moderate; 15-21 severe): 0 Source: Developed by Drs. Puma Olvera, Lou Nolasco, Elia Haddad and colleagues, with an educational marli from [employer]. JEFFRY-7 Assessment Billing JEFFRY-7 Assessment Tool: JEFFRY-7 Assessment 95677 Physical exam (Primary Care) Vital Signs: Last Vital Signs Temp 98.6 F 08/19/24 16:23 Pulse 94 08/19/24 16:23 BP 116/66 08/19/24 16:23 Pulse Ox 98 08/19/24 16:23 Oxygen Delivery Method Room Air 08/19/24 16:23 BMI result Body Mass Index 25.5 Tobacco/Smoking Status: Tobacco use Status Tobacco use date assessed 08/19/24 08/19/24 16:25 Patient Tobacco Use Status Never used Tobacco 08/19/24 16:25 e-Cigarette/Vaping Use Never Used 08/19/24 16:25 PHQ-9: PHQ-9 Score PHQ-9: Total score 1 08/19/24 17:00 Depression Screening Interpretation: Negative Thrive Assessment: Date of Thrive Assessment Date Thrive assessed 08/19/24 08/19/24 16:25 Currently or been in a relationship where the following occur: No concerns reported Coding Level of Care Code Est Pt Prev Care 18-39y(57740) Diagnoses Prediabetes R73.03 Vitamin D deficiency E55.9 Paresthesia of upper and lower extremities of both sides R20.2 Routine physical examination Z00.00 Anemia D64.9 Additional Codes JEFFRY-7 Assessment Billing - JEFFRY-7 Assessment Tool: JEFFRY-7 Assessment 00757 ([id number]) PHQ-9 - 74989 - PHQ-9 Billing: Yes ([id number]) Assessment & Plan Assessment & Plan (1) Prediabetes: Code(s): R73.03 - Prediabetes Category: Medical Plan: Defers referral to dietitian. She does not want to start medications like metformin. She will try lifestyle modifications including a low carbohydrate, low sugar diet and regular exercise. Recheck hemoglobin A1c in October. (2) Vitamin D deficiency: Code(s): E55.9 - Vitamin D deficiency, unspecified Category: Medical Plan: Continue treatment and recheck vitamin-D level in October. (3) Paresthesia of upper and lower extremities of both sides: Code(s): R20.2 - Paresthesia of skin Category: Medical Plan: Patient underwent MRI of the head and cervical spine. She is on vitamin-D supplementation following lab evaluation. She saw Rheumatology. She is seeing Neurology. She will proceed with EMG as scheduled. (4) Routine physical examination: Code(s): Z00.00 - Encounter for general adult medical examination without abnormal findings Category: Medical Plan: Patient is seen today for a routine physical. As part of this visit we reviewed the following issues, which are considered and essential part of preventative health in this age group: - Breast Cancer screening - Annual Cloud Consultant exam - Blood pressure screening - Cholesterol screening - Nutritional and exercise counseling - Counseling of injury prevention including fire prevention, smoke alarms and seat belt usage - Screening for depression - Education about skin cancer - Recommendations about immunizations - Recommendation of an eye exam - Screening for substance abuse (5) Anemia: Code(s): D64.9 - Anemia, unspecified Category: Medical Plan: Mild anemia but high iron. She will return for repeat labs including CBC with differential, DNA analysis for hemochromatosis, ferritin, iron. Patient instructed to remain off supplements that contain iron in the meantime. Plan Follow up in 3 months to review lab results. Orders: Orders Hemoglobin A1c 10/02/24 D64.9 - Anemia, unspecified, E11.9 - Type 2 diabetes mellitus without complications, R73.03 - Prediabetes IRON PROFILE 10/02/24 D64.9 - Anemia, unspecified, R73.03 - Prediabetes Ferritin 10/02/24 D64.9 - Anemia, unspecified, R73.03 - Prediabetes DNA Analysis Hemochromatosis 10/02/24 D64.9 - Anemia, unspecified, R73.03 - Prediabetes Complete Blood Count Auto Diff 10/02/24 D64.9 - Anemia, unspecified, R73.03 - Prediabetes Lipid Panel 10/02/24 Z13.6 - Encounter for screening for cardiovascular disorders
[2024-08-19 16:23] VITALS: BP 116/66; PULSE 94; TEMP 37; O2SAT 98; BMI 25.5
== END 2024-08-19 16:54 | disposition home or self-care (01) ==
LOC: HO.HMCFM 16:18
PROVIDERS: PCP Physician Assistant Medical; Visit Provider Physician Assistant Medical
DX: R73.03 Prediabetes (principal); E55.9 Vitamin D deficiency, unspecified; R20.2 Paresthesia of skin; Z00.00 Encounter for general adult medical examination without abnormal findings; D64.9 Anemia, unspecified

== ENCOUNTER → 2024-08-19 16:17 | Outpatient (BNVA) | payer BC, SELFPAY | PROVIDERS: PCP Physician Assistant Medical; Visit Provider Physician Assistant Medical | DX: Z00.00 Encounter for general adult medical examination without abnormal findings (principal); D64.9 Anemia, unspecified; R73.03 Prediabetes; E55.9 Vitamin D deficiency, unspecified; R20.2 Paresthesia of skin; G43.909 Migraine, unspecified, not intractable, without status migrainosus; M54.2 Cervicalgia | CPT/HCPCS: 96127 ==

== ENCOUNTER 2024-11-15 16:51 | Emergency (ER) | payer BC, SELFPAY ==
--- NOTE | ~2024-11-15 | XR_ITS ---
CLINICAL HISTORY: cp Two views of the chest. COMPARISON: XR chest dated 06/17/24 at 22:39 EDT FINDINGS: Normal heart and mediastinal contours. No consolidation. No pleural effusion or pneumothorax. No acute fracture. IMPRESSION: 1. No consolidation. This document has been electronically signed by: Tony Jaramillo MD on 11/15/2024 18:31:59
--- NOTE | 2024-11-15 16:53 | ECG_ITS ---
Test Reason : CP Blood Pressure : */* mmHG Vent. Rate : 72 BPM Atrial Rate : 72 BPM P-R Int : 128 ms QRS Dur : 94 ms QT Int : 362 ms P-R-T Axes : 61 64 42 degrees QTcB Int : 396 ms Normal sinus rhythm Minimal voltage criteria for LVH, may be normal variant ( Sokolow-Banda ) Borderline ECG When compared with ECG of 17-Jun-2024 22:02, No significant change was found Referred By: Ella Greer Electronically Signed By: Jose De Dios
[2024-11-15 17:03] VITALS: PULSE 76; RESP 18; TEMP 36.6; O2SAT 98; BMI 24.2
--- NOTE | 2024-11-15 17:16 | ED_ITS ---
HPI - Chest Pain General Chief Complaint: Chest Pain Stated Complaint: chest pain Time Seen by Provider: 11/15/24 17:44 Source: patient Mode of arrival: ambulatory Limitations: no limitations History of Present Illness ED Provider: Ella Greer APRN HPI narrative: This is 34-year-old female who is relatively healthy who presents to the ER with complaints of 5 days of chest discomfort which is worsened with deep breathing, movement and coughing. She denies any upper respiratory symptoms, shortness of breath, fevers, chills, leg swelling or leg pain. Patient reports that she does have some occasional calf cramping which is not new for her. She denies any recent travel. Recent surgeries or hospitalizations. No OCP use. No personal or family history of DVT or PE. No family history of sudden cardiac . Related Data Home Medications ?Medication ?Instructions ?Recorded ?Confirmed epinephrine 0.3 mg/0.3 mL 0.3 mg IM Q10M PRN 06/17/24 06/17/24 injection, auto-injector (EpiPen) Previous Rx's ?Medication ?Instructions ?Recorded cholecalciferol (vitamin D3) 1,250 1,250 mcg PO QWEEK 12 days #12 caps 07/18/24 mcg (50,000 unit) capsule Allergies Allergy/AdvReac Type Severity Reaction Status Date / Time shellfish derived Allergy Anaphylaxis Verified 11/15/24 17:06 Review of Systems 2 Review of Systems: Yes all other systems are reviewed and are negative Constitutional: Constitutional: Reports no additional constitutional complaints, Denies body ache(s), Denies chills, Denies fever(s), Denies headache(s) and Denies weakness Eyes: Eyes: Reports no additional eye complaints and Denies change in vision ENT: Reports system reviewed and no additional complaints, except as documented, Denies dizziness, Denies headache(s), Denies nasal congestion, Denies nasal discharge and Denies neck pain Cardiovascular: Cardiovascular: Reports no additional cardiovascular complaints, Reports chest pain, Denies leg edema and Denies dyspnea Respiratory: Respiratory: Reports no additional respiratory complaints, Denies cough and Denies dyspnea Gastrointestinal: Gastrointestinal: Reports no additional gastrointestinal complaints, Denies abdominal pain, Denies diarrhea, Denies nausea and Denies vomiting Genitourinary: Genitourinary: Reports no additional female genitourinary complaints and Denies urinary incontinence Musculoskeletal: Musculoskeletal: Reports no additional musculoskeletal complaints, Denies back pain, Denies arthralgias, Denies joint swelling, Denies neck pain, Denies numbness and Denies tingling Integumentary/Breasts: Skin/Breast: Reports system reviewed and no additional complaints, except as docu and Denies rash Neurologic: Reports system reviewed and no additional complaints, except as documented, Denies Abnormal speech present, Denies dizziness, Denies headache(s), Denies numbness, Denies tingling and Denies weakness PMFSH Past Medical History Attestation statement: The following information was validated with the patient. Source: old records reviewed and nursing notes reviewed Medical History Routine physical examination Prediabetes Chest tightness Upper back pain Cervicalgia Kidney stone Surgical History H/O hernia repair Family History Family History Mother HTN (hypertension) Social History Social History Household Members: Spouse and Children Housing: House Are you a primary care professionals to a significant other at home: Yes Do you presently have visiting nurse or other home services: No Alcohol intake: current Alcohol intake frequency: does not drink Patient Tobacco Use Status: Never used Tobacco e-Cigarette/Vaping Use: Never Used Second Hand Smoke Exposure: No Advance Directives: No Advance Directives Information Provided: No Do you have a plan to hurt others: No Plan service: No Current occupational status: employed 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 Cognitive needs: No Hearing needs: No Vision needs: Yes (wear glasses) Physical Exam 2 Vital Signs: Vital Signs: Last Vital Signs Temp 98 F 11/15/24 18:13 Pulse 76 11/15/24 18:13 Resp 18 11/15/24 18:13 BP 136/76 11/15/24 18:13 Pulse Ox 98 11/15/24 18:13 O2 Del Method Room Air 11/15/24 18:13 BMI result Body Mass Index 24.2 Const: General: cooperative, healthy appearing, comfortable and no acute distress Orientation/consciousness: patient oriented x3 Limitations: no limitations HEENT: Head: Yes normal to inspection Ears: hearing grossly normal bilaterally General nose exam: Normal external nose present Face and sinus: Yes normal facial exam Mouth: Normal oral and palatal mucosa present Throat: Yes posterior oropharynx normal Eyes: General: appearance normal, both eyes and all related structures P upils: Equal, round and reactive pupils present Neck: Neck: Yes normal visual inspection Chest: Chest palpation & inspection: normal inspection of the chest Resp: Effort & Inspection: normal respiratory effort Auscultation: clear to auscultation bilaterally Cardio: Rate: regular rate Rhythm: regular rhythm Peripheral pulses: P eripheral pulses 2+ throughout GI: Inspection: Yes normal to inspection Palpation (GI): Soft to palpation and nontender Auscultation: normal bowel sounds Back/Spine/Pelvis: Thoracic/Lumbar Spine: thoracic and lumbar spine normal to inspection Skin: General skin exam: no rashes or lesions noted Neuro: General: patient oriented x3, no focal motor deficits and normal sensation to monofilament Cranial nerves: Yes Equal, round and reactive pupils present Cognition (Neuro): normal cognition Speech: No Abnormal speech present Gait exam (Neuro): Normal gait present Motor exam (neuro): 5/5 motor strength present throughout Extrem: General: Yes normal to inspection, Yes no calf tenderness and No pedal edema Course Course Course Narrative: Ella Greer 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 Defer additional HPI, ROS and PE to primary provider. 34-year-old female with no known medical history presents the ER with complaints of chest pain which is worsened with deep breathing, movement and cough since Monday. Will obtain labs, EKG, chest x-ray. VSS Medical Decision Making Medical Decision Making MDM Narrative: This is 34-year-old female who is relatively healthy who presents to the ER with complaints of 5 days of chest discomfort which is worsened with deep breathing, movement and coughing. She denies any upper respiratory symptoms, shortness of breath, fevers, chills, leg swelling or leg pain. Patient reports that she does have some occasional calf cramping which is not new for her. She denies any recent travel. Recent surgeries or hospitalizations. No OCP use. No personal or family history of DVT or PE. No family history of sudden cardiac . Heart sounds normal. Lungs are clear. No pedal swelling or calf tenderness. Vitals are stable Will obtain labs, EKG, chest x-ray Differential Diagnosis Differential Diagnoses: The differential diagnosis associated with the presentation includes Low suspicion for ACS with symptoms greater than 24 hours with flat troponin and nonischemic EKG Low suspicion for PE with no clinical findings concerning for DVT or PE, no hypoxia, no tachypnea, perc negative Low suspicion for aortic dissection with gradual onset of symptoms Low suspicion for pneumothorax, pneumonia Admission/Observation Consideration of admission/observation: Escalation of care including admission/observation considered Heart score is 0. No need for admission. Can follow up outpatient with primary care doctor Lab Data MDM Lab Attestation statement: I reviewed the patient's lab results. 11/15/24 17:19 11/15/24 17:19 Labs: Lab Results 11/15/24 Range/Units 17:19 WBC 6.5 (4.8-10.8) X10*3/uL RBC 3.82 L (4.20-5.50) X10*6/uL Hgb 12.3 (12.0-16.0) g/dl Hct 35.3 L (37.0-47.0) % MCV 92.4 (80.0-98.0) fL MCH 32.2 (27.0-33.0) pg MCHC 34.8 (31.0-35.0) g/dl RDW 12.4 (11.0-16.0) % Plt Count 245 (160-400) X10*3/uL MPV 10.9 (9.4-12.3) fL Immature Gran % (Auto) 0.2 (0.0-0.4) % Neut % (Auto) 61.1 (45-73) % Lymph % (Auto) 28.1 (20-40) % [place] % (Auto) 8.7 (2-11) % Eos % (Auto) 1.4 (0-4) % Baso % (Auto) 0.5 (0-2) % Lymph # (Auto) 1.8 (1.2-4.9) X10*3/uL [place] # (Auto) 0.6 (0.1-1.2) X10*3/uL Eos # (Auto) 0.1 (0.0-0.4) X10*3/uL Baso # (Auto) 0.0 (0.0-0.2) X10*3/uL Abs Immat Gran (auto) 0.01 (0.00-0.03) X10*3/uL Absolute Neuts (auto) 4.0 (2.0-8.3) x10*3/uL Absolute Nucleated RBC 0.000 (0.0-0.012) X10*3/uL Nucleated RBC % (auto) 0.0 (0.0-0.2) /100WBC D-Dimer High Sensitivty < 150 NG/ML Sodium 138 (135-145) mmol/L Potassium 3.8 (3.3-5.1) mmol/L Chloride 104 (96-108) mmol/L Carbon Dioxide 26 (22-29) mmol/L Anion Gap 12 (12-20) BUN 10 (9-16) mg/dL Creatinine 0.81 (0.5-1.4) mg/dL Estim Creat Clear Calc 90.7 Estimated GFR > 60 Random Glucose 118 H (60-115) mg/dL Calcium 9.1 (8.4-10.2) mg/dL Total Bilirubin 1.1 H (0.0-1.0) mg/dL Direct Bilirubin 0.4 (0.0-0.5) mg/dL AST 19 (5-31) U/L ALT 20 (0-31) U/L Alkaline Phosphatase 41 (39-117) U/L Troponin I High Sens < 2.7 (<3.5-17.0) ng/L Total Protein 6.9 (6.5-8.0) g/dL Albumin 4.5 (3.5-5.0) g/dL Independent Interpretation I performed an independent interpretation of an: EKG and Plain X-Ray Interpretation: I independently reviewed the EKG which shows normal sinus rhythm with a rate of 72, normal NH, normal QRS, normal QT I independently viewed the x-ray and agree with the radiology report Radiology Impression Discussion of test interpretation with radiology: I have reviewed the radiologist's reading. Radiologist Impression: [address] [id number] XRay Report Signed Patient: Rupa Rees MR#: [id number] : 1990 Acct:[id number] Age/Sex: 34 / F ADM Date: 11/15/24 Loc: HO.ED Attending Dr: Ordering Physician: Ella Greer NP Date of Service: 11/15/24 Procedure(s): XR chest 2V Accession Number(s): [id number] cc: Ella Greer NP; Physician,Unknown ~ CLINICAL HISTORY: cp Two views of the chest. COMPARISON: XR chest dated 06/17/24 at 22:39 EDT FINDINGS: Normal heart and mediastinal contours. No consolidation. No pleural effusion or pneumothorax. No acute fracture. IMPRESSION: 1. No consolidation. Discharge Plan Discharge Clinical Impression: Chest pain Patient Disposition: Home, Self-Care Instructions: Chest Pain (ED) Additional Instructions: Your blood work including her troponin and D-dimer were negative Your EKG is normal I will call you with the results of your x-ray Follow-up with your primary care doctor as you may need additional testing outpatient Return for any worsening symptoms Prescriptions: No Action cholecalciferol (vitamin D3) 1,250 mcg (50,000 unit) capsule 1,250 mcg PO QWEEK 12 Days Qty: 12 0RF epinephrine [EpiPen] 0.3 mg/0.3 mL auto-injector 0.3 mg IM Q10M PRN Rx Instructions: for 2 doses Referrals: Physician,Unknown J [Primary Care Provider, Medical] Interventions: ED Discharge Assessment Last Done: 11/15/24 18:13 Discharge Date/Time: 11/15/24 18:14 Print Language: Honduran
[2024-11-15 17:24] LABS: MANUAL DIFF FLAG NO
[2024-11-15 17:28] LABS: Hematocrit 35.3 % (37.0-47.0); Hemoglobin 12.3 g/dl (12.0-16.0); Imm Gran Abs Auto 0.01 X10*3/uL (0.00-0.03); Imm Gran Pct Auto 0.2 % (0.0-0.4); Lymphocytes Absolute Auto 1.8 X10*3/uL (1.2-4.9); Mean Corpuscular HGB Conc 34.8 g/dl (31.0-35.0); Mean Corpuscular Hemoglobin 32.2 pg (27.0-33.0); Mean Corpuscular Volume 92.4 fL (80.0-98.0); NRBC Abs Auto 0.000 X10*3/uL (0.0-0.012); NRBC Pct Auto 0.0 /100WBC (0.0-0.2); Platelet Count 245 X10*3/uL (160-400); Red Blood Count 3.82 X10*6/uL (4.20-5.50); White Blood Count 6.5 X10*3/uL (4.8-10.8)
[2024-11-15 17:32] LABS: D Dimer High Sensitivity < 150 NG/ML
[2024-11-15 17:40] LABS: Alanine Aminotransferase 20 U/L (0-31); Albumin Level 4.5 g/dL (3.5-5.0); Alkaline Phosphatase 41 U/L (39-117); Anion Gap 12 (12-20); Aspartate Amino Transferase 19 U/L (5-31); Blood Urea Nitrogen 10 mg/dL (9-16); Calcium 9.1 mg/dL (8.4-10.2); Carbon Dioxide 26 mmol/L (22-29); Chloride 104 mmol/L (96-108); Creatinine Clr Calc Pharmacy 90.7; Estimated Glomerular Filt Rate > 60; Potassium 3.8 mmol/L (3.3-5.1); Sodium 138 mmol/L (135-145); Total Protein 6.9 g/dL (6.5-8.0)
[2024-11-15 17:48] LABS: Troponin-I High Sensitivity < 2.7 ng/L (<3.5-17.0)
[2024-11-15 18:13] VITALS: BP 136/76; PULSE 76; RESP 18; TEMP 36.6; O2SAT 98
== END 2024-11-15 18:14 | disposition home or self-care (01) ==
PROVIDERS: Nurse Practitioner Family; Emergency Provider Emergency Medicine
DX: R07.9 Chest pain, unspecified (principal)
CPT/HCPCS: 36415; 71046; 80048; 80076; 84484; 85025; 85379; 93005; 99283

== ENCOUNTER → 2024-11-15 16:53 | Outpatient (BNV) | payer BC, SELFPAY | PROVIDERS: Emergency Provider Emergency Medicine; Visit Provider Internal Medicine Cardiovascular Disease | DX: R07.89 Other chest pain (principal) | CPT/HCPCS: 93010 ==

== ENCOUNTER → 2024-11-15 17:42 | Outpatient (BNV) | payer BC, SELFPAY | PROVIDERS: Emergency Provider Emergency Medicine; Visit Provider Radiology Diagnostic Radiology | DX: R07.9 Chest pain, unspecified (principal) | CPT/HCPCS: 71046 ==

== ENCOUNTER 2025-03-25 14:09 | Outpatient (REF) | payer BC, SELFPAY ==
--- OUTSIDE RECORDS SUMMARY | 2025-03-25 15:26 | XMS_ITS | Encounter Summary ---
Author Organization [facility] Address [address] [place] [address] Phone Care Team Providers Care Machinist Outside Name Role Phone Dick Arrington MD Primary Care Provider Unavailab le Encounter Details Date Type Department Care Team (Late st Contact Info) Description 10/01/2020 Orders Only [facility] [address] [facility] [address] [place] [address] Dick Arrington MD [address] [place] [id number] Dysuria Social History Tobacco Use Types Packs/Day [...] Comment See Comment See Comment See Comment [facility] Comment: CLEAN CATCH (URINE) NONE 10-50,000 COL/ML ESCHERICHIA COLI FINAL 11/19/2020 Susceptibility See Comment [facility] Comment: ORGANISM 10-50,000 COL/ML ESCHERICHIA COLI METHOD MIN. INHIB. CONC. (MCG/ML) AMPICILLIN SUSCEPTIBLE AMPICILLIN/SULBACTAM SUSCEPTIBLE AMOXICILLIN/CLAVULAN SUSCEPTIBLE CEFAZOLIN SUSCEPTIBLE CEFEPIME SUSCEPTIBLE CEFTRIAXONE SUSCEPTIBLE CIPROFLOXACIN SUSCEPTIBLE ERTAPENEM SUSCEPTIBLE GENTAMICIN SUSCEPTIBLE LEVOFLOXACIN SUSCEPTIBLE MEROPENEM SUSCEPTIBLE NITROFURANTOIN SUSCEPTIBLE PIPERACILLIN/TAZOBAC SUSCEPTIBLE TRIMETH/SULFAMETHOX SUSCEPTIBLE TETRACYCLINE SUSCEPTIBLE Testing performed or reported by [facility], a Service of [facility], [address] [place] [address] Hu Stock MD, Dialer [facility]# [id number] Urine specimen (specimen) Urine specimen obtained by clean catch procedure / Unknown 11/16/2020 3:55 PM EDT 11/16/2020 3:58 PM EDT us Dick Arrington MD LAB URINE ORDERABLES Final Resul t Performing Organization Address City/State/[facility] Co fl Phone Number [facility] documented in this encounter Visit Diagnoses Diagnosis Dysuria documented in this encounter Care Teams Machinist Outside Relationship Specialty Start Date End Date Dick Arrington MD PCP - General Nephrology 09/14/20 documented as of this encounter
--- OUTSIDE RECORDS SUMMARY | 2025-03-25 15:26 | XMS_ITS | Clinical Summary ---
Author Organization [facility] Facility Address [address] [place] [id number] Care Team Providers Care Facilities Assistant Name Role Phone Dick Arrington MD [...] of 2 - PCV) 2008 Influenza Vaccine (#1) 2024 02/04/2016 Care Teams Facilities Assistant Relationship Specialty Start Date End Date Dick Arrington MD PCP - General Nephrology 09/14/20
--- OUTSIDE RECORDS SUMMARY | 2025-03-25 15:26 | XMS_ITS | Encounter Summary ---
Author Organization [facility] Address [address] [place] [address] Phone Care Team Providers Care Commercial Loan Underwriter Name Role Phone Dick Arrington MD Primary Care Provider Unavailab le Encounter Details Date Type Department Care Team (Late st Contact Info) Description 07/31/2020 Orders Only [facility] [address] [facility] [address] [place] [address] Rosalie Cuenca [place] Exposure to [...] PM EDT) Coronavirus COVID-19 PCR NEGATIVE (NEG) [facility] Comment: 2019-novel Coronavirus (2019-nCoV) not detected by real-time RT-PCR. Note: If clinical suspicion for COVID-19 is high, continue to maintain precautions and consider repeat testing. Result reported to the [facility]. To prevent errors in diagnosis, test [...] performed by real time PCR utilizing ASHLEY [email or web address] SARS-CoV-2 test. SARS-CoV-2 Source [facility] Comment: Testing performed or reported by [facility], a Service of [facility], [address] [place] [address] [place] MD, Curriculum Supervisor 07/31/2020 1:06 PM EDT 07/31/2020 6:43 PM EDT us Ángel Figueredo MD LAB HISTORICAL-CONVERSION S-UNSOLICITED RESULTS Final Result [facility] documented in this encounter Visit Diagnoses Diagnosis Exposure to COVID-19- Primary Cough documented in this encounter Care Teams Commercial Loan Underwriter Relationship Specialty Start Date End Date Dick Arrington MD PCP - General Nephrology 09/14/20 documented as of this encounter
== END 2025-03-25 14:10 | disposition home or self-care (01) ==
LOC: HO.HKASLDS 14:09
PROVIDERS: PCP Physician Assistant Medical; Visit Provider Internal Medicine Nephrology
DX: R30.0 Dysuria (principal)
CPT/HCPCS: 87086; 87088; 87186